=== PATIENT | male | born 1985 | race Caucasian/White ===

== ENCOUNTER → 2018-12-23 | Outpatient (CLI) | payer OTHER, SELFPAY ==
[2013-05-11 19:12] VITALS: BMI 26.9
[2018-12-23 13:44] LABS: Chlamydia Trachomatis by PCR Negative (Negative); Neisserai gonorrhoeae by PCR Negative (Negative); Probe Check PASS; Sample Adequacy Control PASS; Specimen Processing Control PASS
== END | disposition home or self-care (01) ==
LOC: LABSPEC 09:13
PROVIDERS: Visit Provider Nurse Practitioner Family
DX: Z11.3 Encounter for screening for infections with a predominantly sexual mode of transmission (principal)
CPT/HCPCS: 87491; 87591

== ENCOUNTER → 2019-04-08 17:03 | Outpatient (CLI) | payer OTHER, SELFPAY ==
[2013-05-11 19:12] VITALS: BMI 26.9
[2019-04-08 18:04] LABS: Hematocrit 47.8 % (40-54); Mean Corp Hgb Conc 33.5 g/dL (32-36); Mean Corpuscular Volume 89.5 fL (80-94); Mean Platelet Vol. 10.9 fl (6.2-12.0); Platelet Count 259 K/mm3 (150-450); RBC Distribution Width CV 12.8 % (11.6-14.6); RBC Distribution Width SD 41.8 fl (35.1-43.9); Red Blood Count 5.34 M/mm3 (4.6-6.2); White Blood Count 8.2 K/mm3 (4.4-11.0)
[2019-04-08 18:50] LABS: Vitamin B12 1207 pg/mL (211-911); Vitamin D,25 Hydroxy 21.9 ng/mL (29.95-100.01)
[2019-04-08 18:52] LABS: ALB/GLOB Ratio 1.1 RATIO (0.9-2.4); AST(SGOT) 22 U/L (15-37); Alanine Aminotransfer ALT/SGPT 37 U/L (16-61); Albumin, Serum 4.2 g/dL (3.2-5.0); Alkaline Phosphatase 89 U/L (45-117); Anion Gap 4 (5-15); BUN 11 mg/dL (7-18); BUN/Creat Ratio 9.5 RATIO (10-20); Calcium,Total 8.7 mg/dL (8.5-10.1); Chloride 105 mmol/L (98-107); Creatinine, Serum 1.16 mg/dL (0.70-1.30); EST Glomerular Filtration Rate 76 mL/min (>60); Est Glom Filt Rate - Afr Amer 92 mL/min (>60); Globulin 3.8 g/dL (2.2-4.2); Glucose 89 mg/dL (74-106); Potassium 4.1 mmol/L (3.5-5.1); Sodium Level 139 mmol/L (136-145); Thyroid Stim Hormone (TSH) 0.96 uIU/mL (0.358-3.74)
== END ==
PROVIDERS: Family Provider Family Medicine; PCP Family Medicine; Referring Provider Family Medicine; Visit Provider Family Medicine
DX: R53.83 Other fatigue (principal)
CPT/HCPCS: 36415; 80053; 82306; 82607; 84403; 84443; 85027

== ENCOUNTER 2023-03-31 14:38 | Observation (INO) | payer OTHER, BC, SELFPAY ==
[2023-03-31] VITALS (10 sets, daily range): BP systolic 121–160; BP diastolic 71–109; PULSE 67–104; RESP 14–18; TEMP 36.1–37.3; O2SAT 95–99; BMI 33.3; BMI 34.4
--- NOTE | 2023-03-31 14:53 | CT_ITS ---
We are attempting to reach an attending provider to discuss findings. An addendum with communication details will be sent when the communication is complete. STUDY: CT Abdomen And Pelvis W/ Contrast Injection 03/31/2023 4:43 PM REASON FOR EXAM: Male, 37 years old. ABDOMINAL PAIN RLQ pain TECHNIQUE: Transaxial images were obtained without oral contrast, and with IV 100mL Isovue-370 intravenous contrast. Individualized dose optimization techniques were used for this CT. COMPARISON: None FINDINGS: The visualized lung bases are unremarkable. The visualized portions of the heart are within normal limits. Unremarkable liver. Unremarkable gallbladder and extrahepatic biliary system. Unremarkable spleen. Unremarkable pancreas. Unremarkable bilateral adrenal glands. No acute findings of the right kidney. No acute findings of the left kidney. Unremarkable visualized stomach. Unremarkable small intestine. Unremarkable colon. There is a tubular, thick-walled appendix (>9 mm), consistent with acute appendicitis. Retrocecal appendix. There are no acute findings of the abdominal aorta. Unremarkable inferior vena cava. Subcentimeter mesenteric lymph nodes. Urinary bladder wall has wall thickening. This can be related to a partially contractile state. However, a cystitis is not excluded. Urinalysis should be performed in an effort to exclude cystitis. Unremarkable abdominal wall. Unremarkable osseous structures. CT/Abdomen/Pelvis W IV Cont ONLY IMPRESSION: (NOT LISTED IN ORDER OF SIGNIFICANCE) Urinary bladder wall has wall thickening. This can be related to a partially contractile state. However, a cystitis is not excluded. Urinalysis should be performed in an effort to exclude cystitis. Acute appendicitis without evidence for perforation or abscess formation. Other findings as above. Electronically Signed: Stanton Corona MD at 16:45 EST ,
[2023-03-31] MEDS: 0.9% Normal Saline (1000mL) 1,000 ML 1000 ML IV (15:08)
[2023-03-31] MEDS: Ondansetron 4 MG/2 ML Vial IV (15:08)
--- NOTE | 2023-03-31 15:08 | EX.ED.DYSGE1 ---
HPI <CLAIR Sweet - Last Filed: 03/31/23 18:04> History of Present Illness Chief Complaint: Abd Pain Narrative Narrative: Patient presenting today due to sharp right lower quadrant abdominal pain that he has had constantly since yesterday that is worsening. He reports that the pain radiates to his umbilicus. He has some nausea but denies vomiting. He denies any history of abdominal surgeries. Last bowel movement was yesterday morning and was normal. He denies fever, chills, diarrhea, urinary symptoms, and history of kidney stones. He denies a PMH of any chronic health conditions. PFSH <CLAIR Sweet - Last Filed: 03/31/23 18:04> PFSH Medical History (Updated 03/31/23 @ 17:[address] David Cordero MD) Depression Insomnia Meniscus, lateral, derangement Medical History no medical history Home Medications epinephrine 0.3 mg/0.3 mL injection, auto-injector (EpiPen 2-Yosef) 0.3 mg (0.3 mL) IM ONCE #2 ea 11/10/21 [Rx Last Taken Unknown] escitalopram oxalate 20 mg tablet 20 mg PO DAILY 03/31/23 [History Last Taken Unknown] trazodone 50 mg tablet 50 mg PO DAILY 03/31/23 [History Last Taken Unknown] Allergy/AdvReac Type Severity Reaction Status Date / Time No Known Allergies Allergy Verified 03/31/23 14:38 Social History Smoking Status: Never smoker ROS <CLAIR Sweet - Last Filed: 03/31/23 18:04> ROS ED Constitutional Constitutional ED: Denies chills or fever(s) Cardiovascular Cardiovascular: Denies chest pain Respiratory/Chest Respiratory/Chest: Denies cough or dyspnea Gastrointestinal Gastrointestinal: Reports abdominal pain and nausea; Denies diarrhea or vomiting Genitourinary Genitourinary ED: Denies dysuria, hematuria or urinary urgency Musculoskeletal Musculoskeletal: Denies arthralgias or myalgias Integumentary Denies rash Neurologic Neurologic: Denies weakness EXAM <CLAIR Sweet - Last Filed: 03/31/23 18:04> Physical Exam Const Vital Signs: 03/31/23 14:39 03/31/23 17:13 03/31/23 17:46 Temperature 96.9 F L 98.2 F Temperature Source Temporal Temporal Pulse Rate 104 H 80 74 Respiratory Rate 16 16 16 Blood Pressure 160/109 H 138/74 H 138/78 H Blood Pressure Mean 126 95 98 Blood Pressure Source Monitor Blood Pressure Position Semi-Fowlers Blood Pressure Location Right Arm Pulse Ox 95 99 99 Oxygen Delivery Method Room Air Room Air Positive well nourished, well developed and no apparent distress General Appearance ED: well developed HEENT Reports normocephalic and head/scalp atraumatic Mouth ED: Yes moist mucous membranes normal Eyes PERRL and EOMs intact bilaterally Neck full ROM and supple Chest Wall inspection of chest normal Resp normal respiratory effort and clear to auscultation bilaterally Cardio regular rate and regular rhythm GI soft to palpation, non-distended and no masses GI Narrative: McBurney's point tenderness to palpation without rigidity, guarding, or peritoneal signs. Negative Fan sign, positive Rovsing sign. Back/Spine normal ROM and normal to inspection Extremity normal to inspection and full ROM Neuro oriented x3, CN's II-XII intact bilaterally, moves all extremities, no focal motor deficits and no sensory deficits noted Sensorium / Orientation: awake and alert Psych mental status grossly normal and thought process normal Skin no rashes or lesions noted and no wounds <Dr. El Bentley MD - Last Filed: 03/31/23 22:00> Physical Exam Const Vital Signs: 03/31/23 14:39 03/31/23 17:13 03/31/23 17:46 Temperature 96.9 F L 98.2 F Temperature Source Temporal Temporal Pulse Rate 104 H 80 74 Respiratory Rate 16 16 16 Blood Pressure 160/109 H 138/74 H 138/78 H Blood Pressure Mean 126 95 98 Blood Pressure Source Monitor Blood Pressure Position Semi-Fowlers Blood Pressure Location Right Arm Pulse Ox 95 99 99 Oxygen Delivery Method Room Air Room Air [facility] <CLAIR Sweet - Last Filed: 03/31/23 18:04> [facility] Narrative Medical decision making narrative: Patient presenting today with right lower quadrant abdominal pain that started yesterday. He does have pain to McBurney's point. He is slightly tachycardic at 104 bpm. Labs to be obtained to rule out leukocytosis, anemia, electrolyte abnormality, CELIA, and UTI. CT of the abdomen and pelvis will be obtained to rule out appendicitis, kidney stone, bowel obstruction, diverticulitis, cholecystitis, and other etiology. He will be given IV fluids, Zofran, and morphine. CT of the abdomen does show appendicitis without perforation or abscess formation. Dr. Cordero was consulted and will be taking patient to the OR. Patient was started on Zosyn. Patient comfortable with this plan. Lab Data Attestation: I reviewed the patient's lab results. Lab results narrative: CBC, CMP, UA, lipase all WNL Labs: Laboratory Results - last 24 hr 03/31/23 03/31/23 03/31/23 15:10 15:40 17:10 WBC 9.0 RBC 5.26 Hgb 16.0 Hct 48.2 MCV 91.6 MCH 30.4 MCHC 33.2 RDW Std Deviation 44.2 H RDW Coeff of Mally 13.2 Plt Count 237 MPV 10.8 Immature Gran % (Auto) 0.300 Neut % (Auto) 73.8 H Lymph % (Auto) 17.5 L Orange % (Auto) 5.9 Eos % (Auto) 1.9 Baso % (Auto) 0.6 Absolute Neuts (auto) 6.6 Absolute Lymphs (auto) 1.57 Nucleated RBC % 0 PT 14.4 INR 1.1 Sodium 140 Potassium 3.8 Chloride 107 Carbon Dioxide 28.0 Anion Gap 5 BUN 11 Creatinine 1.21 Estim Creat Clear Calc 84.63 Est GFR (MDRD) Af Amer 86 Est GFR (MDRD) Non-Af 71 BUN/Creatinine Ratio 9.1 L Glucose 103 Calcium 9.1 Total Bilirubin 0.50 AST 19 ALT 54 Alkaline Phosphatase 112 Total Protein 7.5 Albumin 3.7 Globulin 3.8 Albumin/Globulin Ratio 1.0 Lipase 34 Urine Color Yellow Urine Clarity Clear Urine pH 6.0 Ur Specific Harold 1.015 Urine Protein Negative Urine Glucose (UA) Normal Urine Ketones 5 H Urine Occult Blood Negative Urine Nitrite Negative Urine Bilirubin Negative Urine Urobilinogen Normal Ur Leukocyte Esterase Negative Urine RBC 0 SEEN Urine WBC 0 SEEN Ur Squamous Epith Cells 0 SEEN Urine Bacteria 0 SEEN Urine Mucus 0 SEEN Blood Type A POSITIVE Antibody Screen NEGATIVE Radiography Diagnostic Testing: Clinical Impression(s) from Imaging Studies Abdomen/Pelvis CT 03/31/23 14:53 IMPRESSION: (NOT LISTED IN ORDER OF SIGNIFICANCE) Urinary bladder wall has wall thickening. This can be related to a partially contractile state. However, a cystitis is not excluded. Urinalysis should be performed in an effort to exclude cystitis. Acute appendicitis without evidence for perforation or abscess formation. Other findings as above. Electronically Signed: Stanton Corona MD at 16:45 EST , ADDENDUM: 03/31/23 1655 IMPRESSION: (NOT LISTED IN ORDER OF SIGNIFICANCE) Urinary bladder wall has wall thickening. This can be related to a partially contractile state. However, a cystitis is not excluded. Urinalysis should be performed in an effort to exclude cystitis. Acute appendicitis without evidence for perforation or abscess formation. Other findings as above. N.B. : The above Results were Read Back by Stanton Corona MD to El Bentley MD, and understanding confirmed on 03/31/2023 16:48:35 (ET). Electronically Signed: Stanton Corona MD at 16:45 EST , ADDENDUM: 03/31/23 1701 IMPRESSION: (NOT LISTED IN ORDER OF SIGNIFICANCE) Urinary bladder wall has wall thickening. This can be related to a partially contractile state. However, a cystitis is not excluded. Urinalysis should be performed in an effort to exclude cystitis. Acute appendicitis without evidence for perforation or abscess formation. Other findings as above. N.B. : The above Results were Read Back by Stanton Corona MD to El Bentley MD, and understanding confirmed on 03/31/2023 16:54:12 (ET). Electronically Signed: Stanton Corona MD at 16:45 EST , EKG Initial EKG: Comments: 75 bpm, normal sinus rhythm, no ST elevation, no signs of cardiac ischemia <Dr. El Bentley MD - Last Filed: 03/31/23 22:00> [facility] Lab Data Labs: Laboratory Results - last 24 hr 03/31/23 03/31/23 03/31/23 15:10 15:40 17:10 WBC 9.0 RBC 5.26 Hgb 16.0 Hct 48.2 MCV 91.6 MCH 30.4 MCHC 33.2 RDW Std Deviation 44.2 H RDW Coeff of Mally 13.2 Plt Count 237 MPV 10.8 Immature Gran % (Auto) 0.300 Neut % (Auto) 73.8 H Lymph % (Auto) 17.5 L Orange % (Auto) 5.9 Eos % (Auto) 1.9 Baso % (Auto) 0.6 Absolute Neuts (auto) 6.6 Absolute Lymphs (auto) 1.57 Nucleated RBC % 0 PT 14.4 INR 1.1 Sodium 140 Potassium 3.8 Chloride 107 Carbon Dioxide 28.0 Anion Gap 5 BUN 11 Creatinine 1.21 Estim Creat Clear Calc 84.63 Est GFR (MDRD) Af Amer 86 Est GFR (MDRD) Non-Af 71 BUN/Creatinine Ratio 9.1 L Glucose 103 Calcium 9.1 Total Bilirubin 0.50 AST 19 ALT 54 Alkaline Phosphatase 112 Total Protein 7.5 Albumin 3.7 Globulin 3.8 Albumin/Globulin Ratio 1.0 Lipase 34 Urine Color Yellow Urine Clarity Clear Urine pH 6.0 Ur Specific Harold 1.015 Urine Protein Negative Urine Glucose (UA) Normal Urine Ketones 5 H Urine Occult Blood Negative Urine Nitrite Negative Urine Bilirubin Negative Urine Urobilinogen Normal Ur Leukocyte Esterase Negative Urine RBC 0 SEEN Urine WBC 0 SEEN Ur Squamous Epith Cells 0 SEEN Urine Bacteria 0 SEEN Urine Mucus 0 SEEN Blood Type A POSITIVE Antibody Screen NEGATIVE Radiography Diagnostic Testing: Clinical Impression(s) from Imaging Studies Abdomen/Pelvis CT 03/31/23 14:53 IMPRESSION: (NOT LISTED IN ORDER OF SIGNIFICANCE) Urinary bladder wall has wall thickening. This can be related to a partially contractile state. However, a cystitis is not excluded. Urinalysis should be performed in an effort to exclude cystitis. Acute appendicitis without evidence for perforation or abscess formation. Other findings as above. Electronically Signed: Stanton Corona MD at 16:45 EST , ADDENDUM: 03/31/23 1655 IMPRESSION: (NOT LISTED IN ORDER OF SIGNIFICANCE) Urinary bladder wall has wall thickening. This can be related to a partially contractile state. However, a cystitis is not excluded. Urinalysis should be performed in an effort to exclude cystitis. Acute appendicitis without evidence for perforation or abscess formation. Other findings as above. N.B. : The above Results were Read Back by Stanton Corona MD to El Bentley MD, and understanding confirmed on 03/31/2023 16:48:35 (ET). Electronically Signed: Stanton Corona MD at 16:45 EST , ADDENDUM: 03/31/23 1701 IMPRESSION: (NOT LISTED IN ORDER OF SIGNIFICANCE) Urinary bladder wall has wall thickening. This can be related to a partially contractile state. However, a cystitis is not excluded. Urinalysis should be performed in an effort to exclude cystitis. Acute appendicitis without evidence for perforation or abscess formation. Other findings as above. N.B. : The above Results were Read Back by Stanton Corona MD to El Bentley MD, and understanding confirmed on 03/31/2023 16:54:12 (ET). Electronically Signed: Stanton Corona MD at 16:45 EST , Treatment and Re-Evaluation :: I have personally performed a face to face assessment of the patient and have reviewed the TAZ Note. I performed a substantive portion of the visit including all aspects of the following. My reid findings include: History: Patient states that yesterday morning he started with pain in his abdomen more around his umbilicus. It is moved to the right lower quadrant has gotten overall worse. He has had nausea but no vomiting. No change in bowel habits. No known fevers or chills. No history of abdominal surgery. No history of kidney stones and no urinary symptoms. Exam: Patient awake alert no acute distress. Lungs are clear. Heart is regular when I listen to them. Bowel sounds are normal. Not distended. But he does have tenderness to the right lower quadrant. He is not guarding. There is no rebound at this time. No CVA tenderness. Medical Decision Making: Patient will be given medications, IV fluids,, blood work and CT are pending. Discharge Plan Dx/Rx/DC Orders Clinical Impression: Acute appendicitis Disposition Disposition: Acute Care Hospital [facility] Discharge Date/Time: 03/31/23 18:01
[2023-03-31] MEDS: Morphine 4 MG/ML Syringe IV ×2 (15:09→17:09)
[2023-03-31 15:19] LABS: Absolute Lymphocyte Count 1.57 X10^3/uL (0.83-4.51); Absolute Neutrophil Count 6.6 X10^3/uL (2.0-7.7); Basophil# 0.05 X10^3/uL; Basophil% 0.6 % (0-1); Eosinophil# 0.17 X10^3/uL; Eosinophils% 1.9 % (0-5); Hematocrit 48.2 % (40-54); Lymphocyte # 1.57 X10^3/ul (0.83-4.51); Lymphocyte % 17.5 % (19-41); Mean Corp Hgb Conc 33.2 g/dL (32-36); Mean Corpuscular Hgb 30.4 pg (27.0-32.0); Mean Corpuscular Volume 91.6 fL (80-94); Mean Platelet Vol. 10.8 fl (6.2-12.0); Monocyte# 0.53 X10^3/uL; Monocyte% 5.9 % (0-10); NRBC Flagged by Analyzer 0 % (0-5); Neutrophil % 73.8 % (47-70); Platelet Count 237 K/mm3 (150-450); RBC Distribution Width CV 13.2 % (11.6-14.6); RBC Distribution Width SD 44.2 fl (35.1-43.9); Red Blood Count 5.26 M/mm3 (4.6-6.2)
[2023-03-31 15:32] LABS: AST(SGOT) 19 U/L (15-37); Alanine Aminotransfer ALT/SGPT 54 U/L (16-61); Albumin, Serum 3.7 g/dL (3.2-5.0); Alkaline Phosphatase 112 U/L (45-117); Anion Gap 5 (5-15); BUN 11 mg/dL (7-18); BUN/Creat Ratio 9.1 RATIO (10-20); Calcium,Total 9.1 mg/dL (8.5-10.1); Chloride 107 mmol/L (98-107); Creatinine, Serum 1.21 mg/dL (0.70-1.30); EST Glomerular Filtration Rate 71 mL/min (>60); Est Glom Filt Rate - Afr Amer 86 mL/min (>60); Estimated Creatinine Clearance 84.63 ml/min; Globulin 3.8 g/dL (2.2-4.2); Glucose 103 mg/dL (74-106); Lipase 34 U/L (13-75); Potassium 3.8 mmol/L (3.5-5.1); Protein, Total 7.5 g/dL (6.4-8.2); Sodium Level 140 mmol/L (136-145)
[2023-03-31 15:51] LABS: Bacteria 0 SEEN /hpf (None Seen); Mucous, Urine 0 SEEN /hpf (<or=2+); Red Blood Cells-Urine 0 SEEN /hpf (0-5); Squamous Epithelial Cells - UA 0 SEEN /hpf (0-5); White Blood Cells 0 SEEN /hpf (0-5)
[2023-03-31 15:59] LABS: Color, Urine Yellow (Yellow); Glucose, Dipstick Normal (Normal); Ketone-Dipstick 5 mg/dl (Negative); Leukocyte Esterase-Dipstick Negative /ul (Negative); Nitrite-Dipstick Negative (Negative); Occult Blood-Urine Negative /ul (Negative); Protein-Dipstick Negative (Negative); Specific Gravity, Urine 1.015 (1.002-1.030); Urine Bilirubin Dipstick Negative (Negative); Urine Clarity Clear (Clear); Urine Urobilinogen Normal (Normal)
--- OUTSIDE RECORDS SUMMARY | 2023-03-31 16:03 | XMS RPT_ITS | CCD ---
Author Name Unknown Address [address] [place] [id number] Organization [facility] Results Test Name Value Interpretation Reference Range Facil ity Summary Purpose Family History No Family History Records Found Advance Directives No Advanced Directives Records Found Additional Source Comments (unrecognized sect ion and content) No Status Records Found INFORMATION SOURCE (unrecogn ized section and content) FOR RECORDS PERTAINING TO PATIENTS WHO ARE OR HAVE BEEN ENROLLED IN A CHEMICAL DEPENDENCY/SUBSTANCEABUSE PROGRAM, SOME INFORMATION MAY BE OMITTED. This clinical summary was aggregated from multiple sources. Caution should be exercised in using it in the provision of clinical care. This summary normalizes information from multiple sources, and as a consequence, information in this document may materially change the coding, format and clinical context of patient data. In addition, data may be omitted in some cases. CLINICAL DECISIONS SHOULD BE BASED ON THE PRIMARY CLINICAL RECORDS. [employer] provides no warranty or guarantee of the accuracy or completeness of information in this document.
--- NOTE | 2023-03-31 16:54 | EKG12_ITS ---
Test Reason : PRE OP Blood Pressure : / mmHG Vent. Rate : 075 BPM Atrial Rate : 075 BPM P-R Int : 154 ms QRS Dur : 090 ms QT Int : 428 ms P-R-T Axes : 058 049 022 degrees QTc Int : 477 ms Normal sinus rhythm Septal infarct , age undetermined Abnormal ECG Confirmed by KESHIA FARNSWORTH, WENDY ([id number]), editor in chief JAIME COLVIN ([id number]) on 04/02/2023 8:35:28 AM Referred By: EBONY Confirmed By:WENDY SCHMITT MD
--- NOTE | 2023-03-31 16:58 | ED.RN ---
NO OLD EKG
[2023-03-31] MEDS: 0.9% Normal Saline (500mL Bag) 500 ML 999 ML IV (17:20)
[2023-03-31] MEDS: Piperacil/Tazobactam 3.375 GM in 0.9% Normal Saline (50mL MB+) 50 ML IV (17:36)
[2023-03-31 17:39] LABS: International Normalized Ratio 1.1; Prothrombin Time (Protime)PT. 14.4 SECONDS (11.7-14.9)
--- NOTE | 2023-03-31 17:48 | HP.PCM.SX_ITS ---
HPI - General HPI Narrative ANGEL RIVERA, is a 37 M who presents with right lower abdomen pain. The patient reports the pain started yesterday morning. It continued throughout the day and this morning it was worse than yesterday. He does have nausea but no vomiting. He denies fevers or chills. The pain does not radiate. [facility] Medical History (Updated 03/31/23 @ 17:[address] David Cordero MD) Depression Insomnia Meniscus, lateral, derangement Medical History no medical history Home Medications epinephrine 0.3 mg/0.3 mL injection, auto-injector (EpiPen 2-Yosef) 0.3 mg (0.3 mL) IM ONCE #2 ea 11/10/21 [Rx Last Taken Unknown] escitalopram oxalate 20 mg tablet 20 mg PO DAILY 03/31/23 [History Last Taken Unknown] trazodone 50 mg tablet 50 mg PO DAILY 03/31/23 [History Last Taken Unknown] Allergy/AdvReac Type Severity Reaction Status Date / Time No Known Allergies Allergy Verified 03/31/23 14:38 Social History Smoking Status: Never smoker ROS Constitutional Constitutional: Reports anorexia; Denies chills or fatigue Eyes Eyes: Denies blurry vision ENT HEENT: Denies abnormal hearing Cardiovascular Cardiovascular: Denies chest pain Respiratory/Chest Respiratory/Chest: Denies cough or dyspnea Gastrointestinal Gastrointestinal: Reports abdominal pain and nausea; Denies change in bowel torre bits or vomiting Genitourinary Genitourinary: Denies difficulty urinating Integumentary Integumentary: Denies jaundice or new lesions Neurologic Neurologic: Denies abnormal gait Psychiatric Psychiatric: Denies anxiety Endocrine Endocrinology: Denies heat intolerance Vital Signs Vital Signs Vital Signs: 03/31/23 14:39 03/31/23 17:13 03/31/23 17:46 Temperature 96.9 F L 98.2 F Temperature Source Temporal Temporal Pulse Rate 104 H 80 74 Respiratory Rate 16 16 16 Blood Pressure 160/109 H 138/74 H 138/78 H Blood Pressure Mean 126 95 98 Blood Pressure Source Monitor Blood Pressure Position Semi-Fowlers Blood Pressure Location Right Arm Pulse Ox 95 99 99 Oxygen Delivery Method Room Air Room Air Weight Weight: 231 lb 12.8 oz Body Mass Index (BMI) 33.3 Physical Exam Const oriented x3 and no apparent distress Resp normal respiratory effort Cardio regular rate and regular rhythm GI soft to palpation Palpation: tender RLQ Extremity normal to inspection Results Lab / Micro Data 03/31/23 15:10 03/31/23 15:10 Labs: Laboratory Results - last 24 hr 03/31/23 15:10: WBC 9.0, RBC 5.26, Hgb 16.0, Hct 48.2, MCV 91.6, MCH 30.4, MCHC 33.2, RDW Std Deviation 44.2 H, RDW Coeff of Mally 13.2, Plt Count 237, MPV 10.8, Immature Gran % (Auto) 0.300, Neut % (Auto) 73.8 H, Lymph % (Auto) 17.5 L, Mccreary % (Auto) 5.9, Eos % (Auto) 1.9, Baso % (Auto) 0.6, Absolute Neuts (auto) 6.6, Absolute Lymphs (auto) 1.57, Nucleated RBC % 0, Sodium 140, Potassium 3.8, Chloride 107, Carbon Dioxide 28.0, Anion Gap 5, BUN 11, Creatinine 1.21, Estim Creat Clear Calc 84.63, Est GFR (MDRD) Af Amer 86, Est GFR (MDRD) Non-Af 71, BUN/Creatinine Ratio 9.1 L, Glucose 103, Calcium 9.1, Total Bilirubin 0.50, AST 19, ALT 54, Alkaline Phosphatase 112, Total Protein 7.5, Albumin 3.7, Globulin 3.8, Albumin/Globulin Ratio 1.0, Lipase 34 03/31/23 15:40: Urine Color Yellow, Urine Clarity Clear, Urine pH 6.0, Ur Specific [place] 1.015, Urine Protein Negative, Urine Glucose (UA) Normal, Urine Ketones 5 H, Urine Occult Blood Negative, Urine Nitrite Negative, Urine Bilirubin Negative, Urine Urobilinogen Normal, Ur Leukocyte Esterase Negative, Urine RBC 0 SEEN, Urine WBC 0 SEEN, Ur Squamous Epith Cells 0 SEEN, Urine Bacteria 0 SEEN, Urine Mucus 0 SEEN 03/31/23 17:10: PT 14.4, INR 1.1 Imagaing Radiology Impression Abdomen/Pelvis CT 03/31/23 14:53 IMPRESSION: (NOT LISTED IN ORDER OF SIGNIFICANCE) Urinary bladder wall has wall thickening. This can be related to a partially contractile state. However, a cystitis is not excluded. Urinalysis should be performed in an effort to exclude cystitis. Acute appendicitis without evidence for perforation or abscess formation. Other findings as above. Electronically Signed: Stanton Corona MD at 16:45 EST , ADDENDUM: 03/31/23 1655 IMPRESSION: (NOT LISTED IN ORDER OF SIGNIFICANCE) Urinary bladder wall has wall thickening. This can be related to a partially contractile state. However, a cystitis is not excluded. Urinalysis should be performed in an effort to exclude cystitis. Acute appendicitis without evidence for perforation or abscess formation. Other findings as above. N.B. : The above Results were Read Back by Stanton Corona MD to El Bentley MD, and understanding confirmed on 03/31/2023 16:48:35 (ET). Electronically Signed: Stanton Corona MD at 16:45 EST , ADDENDUM: 03/31/23 1701 IMPRESSION: (NOT LISTED IN ORDER OF SIGNIFICANCE) Urinary bladder wall has wall thickening. This can be related to a partially contractile state. However, a cystitis is not excluded. Urinalysis should be performed in an effort to exclude cystitis. Acute appendicitis without evidence for perforation or abscess formation. Other findings as above. N.B. : The above Results were Read Back by Stanton Corona MD to El Bentley MD, and understanding confirmed on 03/31/2023 16:54:12 (ET). Electronically Signed: Stanton Corona MD at 16:45 EST , Assessment & Plan Assessment/Plan (1) Acute appendicitis: QUALIFIERS: Acute appendicitis type: unspecified acute appendicitis type Qualified Code(s): K35.80 - Unspecified acute appendicitis PLAN: The patient presented with right lower quadrant pain and a CT scan revealed a thick-walled inflamed appendix. I discussed this with the patient and recommended laparoscopic appendectomy. I discussed the procedure in detail including the risks of bleeding, infection, injury other organs such as the bowel, bladder or ureter. Patient understands the risks and is willing to proceed. He will be given antibiotics in the emergency room and admitted for the night after surgery. David Cordero MD Pager: [facility] [address] [place] [address] Office:
--- OUTSIDE RECORDS SUMMARY | 2023-03-31 17:56 | XMS RPT_ITS | CCD ---
Author Name Unknown Address [address] [place] [id number] Organization [facility] Results Test Name Value Interpretation [...] BE BASED ON THE PRIMARY CLINICAL RECORDS. [employer] provides no warranty or guarantee of the accuracy or completeness of information in this document.
[2023-03-31] MEDS: Bupiv/Epi 0.5% Mpf 30 ML Vial INFILT (18:43)
--- NOTE | 2023-03-31 18:59 | OP.PCM_ITS ---
Report of Operation Date of Procedure: 03/31/23 Pre-Operative Diagnosis: Acute appendicitis Post-Operative Diagnosis: Acute appendicitis Surgery/Procedure Performed:: Laparoscopic appendectomy Description of Surgical Findings:: Inflamed appendix Type of Anesthesia: General/Regional Specimen's removed: Appendix Estimated Blood Loss (mL): 5 Description of Procedure: The patient was brought into the operating room and general anesthesia was induced. The left arm was tucked and the abdomen was prepped and draped in usu al sterile fashion. A small midline incision was made superior to the umbilicus and deepened to the level of the fascia. The fascia was elevated and incised. The peritoneum was also elevated and incised. A finger sweep was performed and a balloon trocar was placed into the abdomen and inflated. The abdomen was insufflated to 15 mmHg and the camera was inserted and the abdomen was inspected for any injuries upon entering the abdomen. There were none. The patient was placed in Trendelenburg position and a 5 mm ports placed in the left lower quadrant and suprapubic areas under direct visualization. Next using atraumatic bowel graspers the appendix was identified. The appendix was grasped and elevated and Enseal was used to take down the mesoappendix. A stapler was used to come across the base of the appendix. The appendix was then placed in Endo Catch bag and removed through the umbilical incision. The staple line was inspected and found to be hemostatic and intact. The 2 5 mm ports are removed under direct visualization. The balloon trocar was deflated and removed and all the air was removed from the abdomen. The umbilical incision fascia was closed with an 0 Vicryl [id number] suture. The incisions were then irrigated with saline and dried. Local anesthetic was injected into the incision sites. The skin incisions were then closed with interrupted 4-0 Monocryl suture and Steri- Strips. Bandages were applied and the patient was awoken and taken to PACU in stable condition. Patient tolerated the procedure well. Admit VTE Documentation VTE Mechan Device Prophylaxis: SCD's
[2023-03-31] MEDS: 0.9% Normal Saline (1000mL) 1,000 ML 15 ML IV (19:13)
--- OUTSIDE RECORDS SUMMARY | 2023-03-31 19:29 | XMS RPT_ITS | CCD ---
Author Name Unknown Address [address] [place] [id number] Organization [facility] Results Test Name Value Interpretation [...] BE BASED ON THE PRIMARY CLINICAL RECORDS. [employer] provides no warranty or guarantee of the accuracy or completeness of information in this document.
[2023-03-31] MEDS: 0.9% Normal Saline (1000mL) 1,000 ML 100 ML IV (20:21)
[2023-03-31] MEDS: Ketorolac 15 MG/ML Vial IV (20:22)
[2023-03-31] MEDS: traZODone 50 MG Tablet PO (22:09)
[2023-03-31] MEDS: Escitalopram Oxalate 20 MG Tablet PO (22:09)
[2023-04-01 03:45] VITALS: BP 95/63; PULSE 76; RESP 16; TEMP 37; O2SAT 96
[2023-04-01] MEDS: 0.9% Normal Saline (1000mL) 1,000 ML 100 ML IV (04:18)
[2023-04-01] MEDS: Ketorolac 15 MG/ML Vial IV (04:18)
[2023-04-01 06:23] LABS: Absolute Lymphocyte Count 1.53 X10^3/uL (0.83-4.51); Absolute Neutrophil Count 4.8 X10^3/uL (2.0-7.7); Basophil# 0.02 X10^3/uL; Basophil% 0.3 % (0-1); Eosinophil# 0.13 X10^3/uL; Eosinophils% 1.9 % (0-5); Hematocrit 41.7 % (40-54); Hemoglobin 14.1 g/dL (13.0-16.5); Lymphocyte # 1.53 X10^3/ul (0.83-4.51); Mean Corp Hgb Conc 33.8 g/dL (32-36); Mean Corpuscular Hgb 31.1 pg (27.0-32.0); Mean Corpuscular Volume 91.9 fL (80-94); Mean Platelet Vol. 11.1 fl (6.2-12.0); Monocyte# 0.43 X10^3/uL; Monocyte% 6.2 % (0-10); NRBC Flagged by Analyzer 0 % (0-5); Neutrophil # 4.81 X10^3/uL (2.7-7.7); Neutrophil % 69.3 % (47-70); Platelet Count 213 K/mm3 (150-450); RBC Distribution Width CV 13.5 % (11.6-14.6); RBC Distribution Width SD 45.9 fl (35.1-43.9); Red Blood Count 4.54 M/mm3 (4.6-6.2); White Blood Count 6.9 K/mm3 (4.4-11.0)
[2023-04-01 06:46] LABS: Anion Gap 2 (5-15); BUN 10 mg/dL (7-18); BUN/Creat Ratio 8.9 RATIO (10-20); Calcium,Total 8.3 mg/dL (8.5-10.1); Chloride 112 mmol/L (98-107); Creatinine, Serum 1.12 mg/dL (0.70-1.30); EST Glomerular Filtration Rate 77 mL/min (>60); Est Glom Filt Rate - Afr Amer 94 mL/min (>60); Estimated Creatinine Clearance 91.43 ml/min; Glucose 94 mg/dL (74-106); Potassium 4.3 mmol/L (3.5-5.1); Sodium Level 141 mmol/L (136-145)
[2023-04-01 07:45] VITALS: BP 140/77; PULSE 71; RESP 16; TEMP 36.6; O2SAT 96
--- NOTE | 2023-04-01 08:25 | PCM.PN.SRG ---
Subjective Subjective Patient is doing well with no issues Objective Data Objective Data Vital Signs: Vital Signs Temp Pulse Resp BP Pulse Ox O2 Del Method 97.9 F 71 16 140/77 H 96 Room Air 04/01/23 07:45 04/01/23 07:45 04/01/23 07:45 04/01/23 07:45 04/01/23 07:45 04/01/23 07:45 Oxygen Delivery Method Room Air Weight: 240 lb 1 oz Body Mass Index (BMI) 34.4 Intake & Output: Intake and Output for Last 24 Hours 03/30/23 03/31/23 04/01/23 23:59 23:59 23:59 Intake Total 1587 / 1787 1295 / 1295 Output Total 1050 / 1050 Balance 1587 / 1437 245 / 245 Lab / Micro Data 04/01/23 05:47 04/01/23 05:47 Labs: Laboratory Results - last 24 hr 03/31/23 15:10: WBC 9.0, RBC 5.26, Hgb 16.0, Hct 48.2, MCV 91.6, MCH 30.4, MCHC 33.2, RDW Std Deviation 44.2 H, RDW Coeff of Mally 13.2, Plt Count 237, MPV 10.8, Immature Gran % (Auto) 0.300, Neut % (Auto) 73.8 H, Lymph % (Auto) 17.5 L, [place] % (Auto) 5.9, Eos % (Auto) 1.9, Baso % (Auto) 0.6, Absolute Neuts (auto) 6.6, Absolute Lymphs (auto) 1.57, Nucleated RBC % 0, Sodium 140, Potassium 3.8, Chloride 107, Carbon Dioxide 28.0, Anion Gap 5, BUN 11, Creatinine 1.21, Estim Creat Clear Calc 84.63, Est GFR (MDRD) Af Amer 86, Est GFR (MDRD) Non-Af 71, BUN/Creatinine Ratio 9.1 L, Glucose 103, Calcium 9.1, Total Bilirubin 0.50, AST 19, ALT 54, Alkaline Phosphatase 112, Total Protein 7.5, Albumin 3.7, Globulin 3.8, Albumin/Globulin Ratio 1.0, Lipase 34 03/31/23 15:40: Urine Color Yellow, Urine Clarity Clear, Urine pH 6.0, Ur Specific [place] 1.015, Urine Protein Negative, Urine Glucose (UA) Normal, Urine Ketones 5 H, Urine Occult Blood Negative, Urine Nitrite Negative, Urine Bilirubin Negative, Urine Urobilinogen Normal, Ur Leukocyte Esterase Negative, Urine RBC 0 SEEN, Urine WBC 0 SEEN, Ur Squamous Epith Cells 0 SEEN, Urine Bacteria 0 SEEN, Urine Mucus 0 SEEN 03/31/23 17:10: PT 14.4, INR 1.1, Blood Type A POSITIVE, Antibody Screen NEGATIVE 04/01/23 05:47: WBC 6.9, RBC 4.54 L, Hgb 14.1, Hct 41.7, MCV 91.9, MCH 31.1, MCHC 33.8, RDW Std Deviation 45.9 H, RDW Coeff of Mally 13.5, Plt Count 213, MPV 11.1, Immature Gran % (Auto) 0.300, Neut % (Auto) 69.3, Lymph % (Auto) 22.0, [place] % (Auto) 6.2, Eos % (Auto) 1.9, Baso % (Auto) 0.3, Absolute Neuts (auto) 4.8, Absolute Lymphs (auto) 1.53, Nucleated RBC % 0, Sodium 141, Potassium 4.3, Chloride 112 H, Carbon Dioxide 27.0, Anion Gap 2 L, BUN 10, Creatinine 1.12, Estim Creat Clear Calc 91.43, Est GFR (MDRD) Af Amer 94, Est GFR (MDRD) Non-Af 77, BUN/Creatinine Ratio 8.9 L, Glucose 94, Calcium 8.3 L Radiography Diagnostic Testing: Radiology Impression Abdomen/Pelvis CT 03/31/23 14:53 IMPRESSION: (NOT LISTED IN ORDER OF SIGNIFICANCE) Urinary bladder wall has wall thickening. This can be related to a partially contractile state. However, a cystitis is not excluded. Urinalysis should be performed in an effort to exclude cystitis. Acute appendicitis without evidence for perforation or abscess formation. Other findings as above. Electronically Signed: Stanton Corona MD at 16:45 EST Reading Location ID and State: [facility] / [place] , Service support , ADDENDUM: 03/31/23 7000 IMPRESSION: (NOT LISTED IN ORDER OF SIGNIFICANCE) Urinary bladder wall has wall thickening. This can be related to a partially contractile state. However, a cystitis is not excluded. Urinalysis should be performed in an effort to exclude cystitis. Acute appendicitis without evidence for perforation or abscess formation. Other findings as above. N.B. : The above Results were Read Back by Stanton Corona MD to El Bentley MD, and understanding confirmed on 03/31/2023 16:48:35 (ET). Electronically Signed: Stanton Corona MD at 16:45 EST , ADDENDUM: 03/31/23 1701 IMPRESSION: (NOT LISTED IN ORDER OF SIGNIFICANCE) Urinary bladder wall has wall thickening. This can be related to a partially contractile state. However, a cystitis is not excluded. Urinalysis should be performed in an effort to exclude cystitis. Acute appendicitis without evidence for perforation or abscess formation. Other findings as above. N.B. : The above Results were Read Back by Stanton Corona MD to El Bentley MD, and understanding confirmed on 03/31/2023 16:54:12 (ET). Electronically Signed: Stanton Corona MD at 16:45 EST , Physical Exam Const oriented x3 and no apparent distress Resp normal respiratory effort and clear to auscultation bilaterally GI soft to palpation and non-tender Assessment & Plan Assessment/Plan (1) Acute appendicitis: QUALIFIERS: Acute appendicitis type: unspecified acute appendicitis type Qualified Code(s): K35.80 - Unspecified acute appendicitis PLAN: Patient is doing well after laparoscopic appendectomy. He is tolerating a diet and he will be discharged home.
--- NOTE | 2023-04-01 08:26 | DCINST_ITS ---
Discharge Instructions Procedure Appendectomy Diet Discharge Diet: Light diet - advance as tolerated Activity Discharge Activity: May Not Drive (for 2-3 days or while taking narcotic pain medications.) May shower in (days): 1 Lifting Restrictions: 20 lbs for 2 weeks Dressing / Incision Call your doctor if your incision/area has: Continuous Slow Oozing, Sudden Increased Bleeding, Increased Pain/ Swelling, Increased Redness and Foul Smelling Discharge Call your doctor if you observe: Fever of 101 or Higher Suture Line Care: Avoid Pulling/Pushing and Avoid Pinching/Bending Remove Dressing in: 2 days (Remove clear bandage in 2 days, remove Steri-Strips in 7 to 10 days) Cleanse incision/area with: Soap & Water Additional Dressing/Incision Instructions:: Keep dressing clean and dry. Change or remove dressing in 2 days. Leave steri strips for 1 week. May protect with a gauze bandaid. Follow Up Care Please Follow Up With: David Cordero MD When: Please call to schedule 2 week follow up appointment. [phone] Test Results: Test results from this visit will be discussed in further detail at your follow- up appointment, if applicable. Discharge Plan Admission Admit Date/Time: 03/31/23 18:59 Attending Provider: David Cordero Primary Care Provider: Prasanna Horne Instructions Additional Instructions / Restrictions: Alternate ibuprofen and Tylenol for pain, oxycodone for breakthrough. Okay to return to work light duty when you feel up to it. Discharge Orders/Prescriptions Prescriptions: New acetaminophen 325 mg Tablet 650 mg PO Q4H PRN PRN (Reason: Pain 1-10 Or Fever) Qty: 0 0RF oxycodone 5 mg Tablet 5 - 10 mg PO Q4H PRN PRN (Reason: Pain Score 4-10) 5 Days Qty: 20 0RF Continued epinephrine [EpiPen 2-Yosef] 0.3 mg/0.3 mL auto-injector 0.3 mg IM ONCE Qty: 2 0RF Rx Instructions: as a single dose; may repeat once escitalopram oxalate 20 mg tablet 20 mg PO DAILY Patient Comments: TAKE 1 TABLET BY MOUTH EVERY DAY trazodone 50 mg tablet 50 mg PO DAILY Patient Comments: TAKE 1 TABLET BY MOUTH AT BEDTIME Referrals / Follow Up: Prasanna Horne MD [Primary Care Provider] - Disposition Disposition (needs filled in before D/C Order can be placed): Home, Self Care
[2023-04-01 11:00] VITALS: BP 149/93; PULSE 70; RESP 16; TEMP 37.2; O2SAT 95
--- NOTE | 2023-04-02 | APP_PTH ---
PATHOLOGY RESULTS PATIENT: ANGEL RIVERA LOC: [facility] U#:[id number] AGE/SX: 37/M ROOM: ME315 RE03/31/[address]: Dr. David Cordero MD : 1985 BED: 1 DIS: 04/01/2023 SPEC #: [id number] RECD: 04/02/23 11:40 STATUS: DARRIUS WOODRUFF #: [id number] BAO: 04/02/23 00:[address]: David Cordero DEPT: SURGICAL PATHOLOGY RECD BY: Fariha Roth ENTERED: 04/02/23 11:41 SP TYPE: APPENDIX OTHR DR: Dr. Zachary Horne MD Tissues: Appendix, NOS Procedures: Surgery Specimen Level III HEADER OPERATION: Laparoscopic appendectomy PRE-OP DIAGNOSIS: Acute appendicitis TISSUE SUBMITTED: Appendix MICROSCOPIC DIAGNOSIS Appendix, appendectomy: Acute appendicitis and periappendicitis. 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 SJ:ruslan 04/03/2023 COMMENT Case has been reviewed in consultation with Dr. Stallings who concurs with the above diagnosis. IDC:AM MICROSCOPIC DESCRIPTION Slides are reviewed. GROSS DESCRIPTION Received in fixative is one container labeled with the patient's name and designated appendix. The specimen consists of an appendix measuring 5.0 cm in length and up to 1.0 cm in diameter. The attached periappendiceal adipose tissue measures up to 2.0 cm in width. The serosa is covered focally with mcelroy, purulent exudate. A diverticulum with possible rupture is noted 1.0 cm away from the tip of the appendix. The lumen is pinpoint. No fecalith is identified. Thermodynamics Teacher sections are submitted in three cassettes. The tip with area of possible ruptured diverticulum is present in cassette 1 & 2 and is entirely submitted. / CATHERNIE:ruslan 04/02/2023 TC:2 CPT: 85846
== END 2023-04-01 11:07 | disposition home or self-care (01) ==
LOC: ED 17:34 → SDC 17:54 → MS3 19:25
PROVIDERS: Physician Assistant; Admitting Provider Surgery; Emergency Provider Emergency Medicine; PCP Family Medicine; Visit Provider Surgery
PROC: 0DTJ4ZZ Resection of Appendix, Percutaneous Endoscopic Approach (ICD-10-PCS; CPT 44970; principal; 2023-03-31 18:00)
DX: K35.80 Unspecified acute appendicitis (principal); F32.A Depression, unspecified; Z79.899 Other long term (current) drug therapy
CPT/HCPCS: 44970; 00840; 36415; 74177; 80048; 80053; 81001; 83690; 85025; 85610; 86850; 86900; 86901; 88304; 93005; 94668; 96361; 96374; 96375; 96376; 99221; 99252; 99284; J7030; Q9967; A4216; C1760; G0378; G0463; J2405

== ENCOUNTER → 2023-12-03 | Outpatient (CLI) | payer OTHER, SELFPAY ==
[2023-12-03 18:41] LABS: Anion Gap 8 (5-15); BUN 15 mg/dL (7-18); BUN/Creat Ratio 13.8 RATIO (10-20); Calcium,Total 9.3 mg/dL (8.5-10.1); Chloride 106 mmol/L (98-107); Cholesterol 203 mg/dL (200); Creatinine, Serum 1.09 mg/dL (0.70-1.30); EST Glomerular Filtration Rate 80 mL/min (>60); Est Glom Filt Rate - Afr Amer 96 mL/min (>60); Glucose 114 mg/dL (74-106); High Density Lipoprotein 43 mg/dL; Sodium Level 137 mmol/L (136-145); Triglycerides 193 mg/dL; Very Low Density Lipoprotein 39 mg/dL (5-40)
== END | disposition home or self-care (01) ==
PROVIDERS: PCP Family Medicine; Visit Provider Family Medicine
DX: Z13.220 Encounter for screening for lipoid disorders (principal); Z13.1 Encounter for screening for diabetes mellitus; E55.9 Vitamin D deficiency, unspecified
CPT/HCPCS: 36415; 80048; 80061; 82306

== ENCOUNTER → 2024-12-22 | Outpatient (CLI) | payer OTHER, SELFPAY | END | disposition home or self-care (01) | LOC: MFPLAB 10:02 | PROVIDERS: PCP Family Medicine; Visit Provider Family Medicine | DX: R53.83 Other fatigue (principal) | CPT/HCPCS: 36415; 84403 ==

== ENCOUNTER → 2025-01-25 | Outpatient (CLI) | payer OTHER, SELFPAY ==
[2025-01-25 15:57] LABS: Follicle Stimulating Hormone 2.7 mIU/mL; Vitamin D,25 Hydroxy 36.3 ng/mL (30-100)
--- OUTSIDE RECORDS SUMMARY | 2025-01-25 17:22 | XMS RPT_ITS | CCD ---
Author Organization [facility] Care Team Providers Care Rn Medical Inpatient Services Name Role Phone Dr. Prasanna Horne Primary Care Provider Dr. El Bentley Emergency Provider Dr. David Cordero Attending Provider Dr. David Cordero Admit Provider Dr. David Cordero Other Provider Dr. Zachary Horne MD Primary Care Physicia n Dr. Zachary Horne MD Attending Physician Zachary Horne Attending Unavailable Zachary Horne Primary Care Unavailable Medications Current Medications Medication Drug Class(es) Dates Sig (Normalized) Sig (Original) acetaminophen 325 mg oral tablet (2 sources) Start: 04-01-2023 take 1-10 tablets by mouth every four hours as needed for pain Start: 04-01-2023 take 650 mg by mouth every four hours as needed Acetaminophen Active 650 MG PO EVERY 4 HOURS NEEDED 0 April 01, 2023 12:00am [id number] 0.3 ml EPINEPHrine 1 mg/ml auto-injector (3 sources) alpha-Adrenergic Agonist, beta-Adrenergic Agonist, Catecholamine Start: 11-10-2021 escitalopram 20 mg oral tablet (3 sources) Serotonin Reuptake Inhibitor Start: 03-31-2023 take 1 tablet by mouth once daily oxyCODONE hydrochloride 5 mg oral tablet (2 sources) Opioid Agonist Start: 04-01-2023 take 5-10 mg by mouth every four hours as needed for pain traZODone hydrochloride 50 mg oral tablet (3 sources) Serotonin Reuptake Inhibitor Start: 03-31-2023 take 1 tablet by mouth once daily Completed/Discontinued Medications Medication Drug Class(es) Dates Sig (Normalized) Sig (Original) amoxicillin 500 mg oral capsule (3 sources) Penicillin-class Antibacterial Start: 05-11-2013 End: 11-10-2021 take 1 capsule by mouth every eight hours Amoxicillin 500 MG capsule Discontinued 500 mg PO Q8H 30 May 11, 2013 1:00am November 10, 2021 5:02pm predniSONE 10 mg oral tablet (3 sources) Start: 11-10-2021 End: 03-31-2023 Prednisone 10 mg tablet Discontinued 0 PO DAILY 30 November 10, 2021 12:00am March 31, 2023 5:57pm 40mg (4 tabs), 30 mg (3 tabs) x 3 days, 20 mg (2 tabs)x 2 days, 10 mg x 3 days orally daily; Start: 11-10-2021 End: 03-31-2023 Prednisone Discontinued 0 PO DAILY November 09, 2021 11:00pm March 31, 2023 4:57pm 40mg (4 tabs), 30 mg (3 tabs) x 3 days, 20 mg (2 tabs)x 2 days, 10 mg x 3 days orally daily; Problems Problem Classification Problem Date Documented Da te Episodic/Chronic Appendicitis and other appendiceal conditions (5 sources) Acute appendicitis; Translations: [Unspecified acute appendicitis] 03-31-2023 Episodic Malaise and fatigue (1 source) Other fatigue; Translations: [Other fatigue] Onset: 12-29-2024 Episodic Other eye disorders (2 sources) Swelling of structure of eye; Translations: [Other specified disorders of eye and adnexa] 11-10-2021 Episodic Other eye disorders (1 source) Swelling around eyes; Translations: [Other specified disorders of eye and adnexa] 11-10-2021 Episodic Poisoning by nonmedicinal substances (3 sources) Allergic reaction to bee sting; Translations: [Toxic effect of venom of bees, accidental (unintentional), initial encounter] 11-10-2021 Episodic Results Test Name Value Interpretation Reference Range Facility L509.3001on 12-22-2024 Testosterone [Mass/Vol] 281.00 ng/dL Low 300-890 [facility] Comment on above: Performed By: #### L 509.3001 #### [facility] [place] [place], [id number] Laboratory - Chemistry and C hemistry - challengeOrdered By: Zachary Horne on 12-22-2024 Testosterone [Mass/Vol] 281.00 ng/dL Low 300-890 [facility] Absolute lymphocyte countOrd ered By: David Cordero on 04-01-2023 Lymphocytes Auto (Unsp spec) [#/Vol] 1.53 10*3/uL 0.83-4.51 [facility] Basophil percentageOrdered B y: David Cordero on 04-01-2023 Basophils/100 WBC (Bld) 0.3 % 0-1 [facility] Chloride [Moles/Vol] 112 mmol/L 98-107 [facility] Eosinophils/100 WBC (Bld) 1.9 % 0-5 [facility] Glucose [Mass/Vol] 94 mg/dL 74-106 [facility] Neutrophils (Bld) [#/Vol] 4.8 10*3/uL 2.0-7.7 [facility] Neutrophils/100 WBC (Bld) 69.3 % 47-70 [facility] Potassium [Moles/Vol] 4.3 mmol/L 3.5-5.1 [facility] Sodium [Moles/Vol] 141 mmol/L 136-145 [facility] WBC (Bld) [#/Vol] 6.9 10*3/uL 4.4-11.0 [facility] Blood erythrocytes count (nu mber/volume)Ordered By: David Cordero on 04-01-2023 RBC (Bld) [#/Vol] 4.54 10*6/uL 4.6-6.2 [facility] Blood hemoglobin measurement (mass/volume)Ordered By: David Cordero on 04-01-2023 Hemoglobin (Bld) [Mass/Vol] 14.1 g/dL 13.0-16.5 [facility] Blood lymphocytes/100 leukoc ytesOrdered By: David Cordero on 04-01-2023 Lymphocytes/100 WBC (Bld) 22.0 % 19-41 [facility] Blood monocytes/100 leukocyt esOrdered By: David Cordero on 04-01-2023 Monocytes/100 WBC (Bld) 6.2 % 0-10 [facility] Blood platelet mean volumeOr dered By: David Cordero on 04-01-2023 Platelet mean volume (Bld) [Entitic vol] 11.1 fL 6.2-12.0 [facility] Determination of erythrocyte mean corpuscular volume (MCV)Ordered By: David Cordero on 04-01-2023 MCV (RBC) [Entitic vol] 91.9 fL 80-94 [facility] Hematocrit Auto (Bld) [Volum e fraction]Ordered By: David Cordero on 04-01-2023 Hematocrit (Bld) [Volume fraction] 41.7 % 40-54 [facility] Laboratory - Chemistry and C hemistry - challengeOrdered By: David Cordero on 04-01-2023 CO2 [Moles/Vol] 27.0 mmol/L 21.0-32.0 [facility] Urea nitrogen/Creatinine [Mass ratio] 8.9 mg/mg 10-20 [facility] Laboratory - Hematology and Cell countsOrdered By: David Cordero on 04-01-2023 Erythrocyte distribution width (RBC) [Entitic vol] 45.9 fL 35.1-43.9 [facility] Erythrocyte distribution width (RBC) [Ratio] 13.5 % 11.6-14.6 [facility] Immature granulocytes/100 WBC (Bld) 0.300 % 0.0-0.9 [facility] Comment on above: IG% - Immature Granu locytes (promyelocytes, myelocytes and metamyelocytes) > 1% indicates that a LEFT SHIFT is Present. MCH (RBC) [Entitic mass] 31.1 pg 27.0-32.0 [facility] Nucleated RBC/100 WBC (Bld) [Ratio] 0 % 0-5 [facility] MCHC Auto (RBC) [Mass/Vol]Or dered By: David Cordero on 04-01-2023 MCHC (RBC) [Mass/Vol] 33.8 g/dL 32-36 [facility] No Panel InformationOrdered By: David Cordero on 04-01-2023 Estimated Creatinine Clearance Calc 91.43 ml/min [facility] Estimated GFR (MDRD) Amer 94 mL/min >60 [facility] Comment on above: GFR Calc Estimated GFR (MDRD) Non-Af Amer 77 mL/min >60 [facility] Comment on above: Non- GFR Calc Platelets bldOrdered By: Bobby Cordero on 04-01-2023 Platelets (Bld) [#/Vol] 213 10*3/uL 150-450 [facility] Serum or plasma calcium amos urement (mass/volume)Ordered By: David Cordero on 04-01-2023 Calcium [Mass/Vol] 8.3 mg/dL 8.5-10.1 [facility] Serum or plasma creatinine m easurement (mass/volume)Ordered By: David Cordero on 04-01-2023 Creatinine [Mass/Vol] 1.12 mg/dL 0.70-1.30 [facility] Comment on above: The validity of the calculated GFR & GFRAA in patients over 70 years has not been determined. Clinical correlation is essential. Serum or plasma urea nitroge n measurement (mass/volume)Ordered By: David Cordero on 04-01-2023 Urea nitrogen [Mass/Vol] 10 mg/dL 7-18 [facility] Thin prep Papanicolaou smear with manual screeningOrdered By: David Cordero on 04-01-2023 Thin prep Papanicolaou smear with manual screening 2 5-15 [facility] Absolute lymphocyte countOrd ered By: Lesly Champion on 03-31-2023 Lymphocytes Auto (Unsp spec) [#/Vol] 1.57 10*3/uL 0.83-4.51 [facility] Basophil percentageOrdered B y: Lesly Champion on 03-31-2023 Basophil percentage 0 SEEN /hpf 0-5 [facility] Basophils/100 WBC (Bld) 0.6 % 0-1 [facility] Bilirubin [Mass/Vol] 0.50 mg/dL 0.20-1.00 [facility] Comment on above: For patients on eltr ombopag therapy, use of Dimension [place] TBIL is not recommended. Chloride [Moles/Vol] 107 mmol/L 98-107 [facility] Eosinophils/100 WBC (Bld) 1.9 % 0-5 [facility] Glucose [Mass/Vol] 103 mg/dL 74-106 [facility] Comment on above: Fasting Glucose resu lt from 100 to 125 mg/dL suggests IMPAIRED HOMEOSTASIS per A.D.A. criteria. Neutrophils (Bld) [#/Vol] 6.6 10*3/uL 2.0-7.7 [facility] Neutrophils/100 WBC (Bld) 73.8 % 47-70 [facility] Potassium [Moles/Vol] 3.8 mmol/L 3.5-5.1 [facility] Protein [Mass/Vol] 7.5 g/dL 6.4-8.2 [facility] Sodium [Moles/Vol] 140 mmol/L 136-145 [facility] WBC (Bld) [#/Vol] 9.0 10*3/uL 4.4-11.0 [facility] Bilirubin Test strip Ql (U)O rdered By: Lesly Champion on 03-31-2023 Bilirubin Ql (U) Negative Negative [facility] Blood erythrocytes count (nu mber/volume)Ordered By: Lesly Champion on 03-31-2023 RBC (Bld) [#/Vol] 5.26 10*6/uL 4.6-6.2 [facility] Blood hemoglobin measurement (mass/volume)Ordered By: Lesly Champion on 03-31-2023 Hemoglobin (Bld) [Mass/Vol] 16.0 g/dL 13.0-16.5 [facility] Blood lymphocytes/100 leukoc ytesOrdered By: Lesly Champion on 03-31-2023 Lymphocytes/100 WBC (Bld) 17.5 % 19-41 [facility] Blood monocytes/100 leukocyt esOrdered By: Lesly Champion on 03-31-2023 Monocytes/100 WBC (Bld) 5.9 % 0-10 [facility] Blood platelet mean volumeOr dered By: Lesly Champion on 03-31-2023 Platelet mean volume (Bld) [Entitic vol] 10.8 fL 6.2-12.0 [facility] Determination of erythrocyte mean corpuscular volume (MCV)Ordered By: Lesly Champion on 03-31-2023 MCV (RBC) [Entitic vol] 91.6 fL 80-94 [facility] Hematocrit Auto (Bld) [Volum e fraction]Ordered By: Lesly Champion on 03-31-2023 Hematocrit (Bld) [Volume fraction] 48.2 % 40-54 [facility] INR in Blood by Coagulation assayOrdered By: Lesly Champion on 03-31-2023 INR Coag (Bld) [Relative time] 1.1 {INR} [facility] Ketones Test strip Ql (U)Ord ered By: Lesly Champion on 03-31-2023 Ketones Ql (U) 5 mg/dl Negative [facility] Laboratory - Chemistry and C hemistry - challengeOrdered By: Lesly Champion on 03-31-2023 ALP [Catalytic activity/Vol] 112 U/L 45-117 [facility] ALT [Catalytic activity/Vol] 54 U/L 16-61 [facility] CO2 [Moles/Vol] 28.0 mmol/L 21.0-32.0 [facility] Globulin (S) [Mass/Vol] 3.8 g/dL 2.2-4.2 [facility] Lipase [Catalytic activity/Vol] 34 U/L 13-75 [facility] Comment on above: Please note:LIPASE r evised reference range effective 22. New Lipase methodology. Expected to produce lower values than the previous assay method. NEW Reference Range: 13 - 75 U/L Urea nitrogen/Creatinine [Mass ratio] 9.1 mg/mg 10-20 [facility] Laboratory - CoagulationOrde red By: Lesly Champion on 03-31-2023 PT Coag (PPP) [Time] 14.4 s 11.7-14.9 [facility] Laboratory - Hematology and Cell countsOrdered By: Lesly Champion on 03-31-2023 Erythrocyte distribution width (RBC) [Entitic vol] 44.2 fL 35.1-43.9 [facility] Erythrocyte distribution width (RBC) [Ratio] 13.2 % 11.6-14.6 [facility] Immature granulocytes/100 WBC (Bld) 0.300 % 0.0-0.9 [facility] Comment on above: IG% - Immature Granu locytes (promyelocytes, myelocytes and metamyelocytes) > 1% indicates that a LEFT SHIFT is Present. MCH (RBC) [Entitic mass] 30.4 pg 27.0-32.0 [facility] Nucleated RBC/100 WBC (Bld) [Ratio] 0 % 0-5 [facility] MCHC Auto (RBC) [Mass/Vol]Or dered By: Lesly Champion on 03-31-2023 MCHC (RBC) [Mass/Vol] 33.2 g/dL 32-36 [facility] Mucus LM Ql (Urine sed)Order ed By: Lesly Champion on 03-31-2023 Mucus Ql (Urine sed) 0 SEEN /hpf [facility] Nitrite Test strip Ql (U)Ord ered By: Lesly Champion on 03-31-2023 Nitrite Ql (U) Negative Negative [facility] No Panel InformationOrdered By: Lesly Champion on 03-31-2023 Estimated Creatinine Clearance Calc 84.63 ml/min [facility] Estimated GFR (MDRD) Amer 86 mL/min >60 [facility] Comment on above: GFR Calc Estimated GFR (MDRD) Non-Af Amer 71 mL/min >60 [facility] Comment on above: Non- GFR Calc Platelets bldOrdered By: Rip Champion on 03-31-2023 Platelets (Bld) [#/Vol] 237 10*3/uL 150-450 [facility] Protein Test strip Ql (U)Ord ered By: Lesly Champion on 03-31-2023 Protein Ql (U) Negative Negative [facility] Serum or plasma albumin amos urement (mass/volume)Ordered By: Lesly Champion on 03-31-2023 Albumin [Mass/Vol] 3.7 g/dL 3.2-5.0 [facility] Serum or plasma albumin/glob ulin mass ratioOrdered By: Lesly Champion on 03-31-2023 Albumin/Globulin [Mass ratio] 1.0 {ratio} 0.9-2.4 [facility] Serum or plasma calcium amos urement (mass/volume)Ordered By: Lesly Champion on 03-31-2023 Calcium [Mass/Vol] 9.1 mg/dL 8.5-10.1 [facility] Serum or plasma creatinine m easurement (mass/volume)Ordered By: Lesly Champion on 03-31-2023 Creatinine [Mass/Vol] 1.21 mg/dL 0.70-1.30 [facility] Comment on above: The validity of the calculated GFR & GFRAA in patients over 70 years has not been determined. Clinical correlation is essential. Serum or plasma urea nitroge n measurement (mass/volume)Ordered By: Lesly Champion on 03-31-2023 Urea nitrogen [Mass/Vol] 11 mg/dL 7-18 [facility] Squamous epithelial cells de tection in urine sediment by light microscopyOrdered By: Lesly Champion on 03-31-2023 Epithelial cells.squamous LM Ql (Urine sed) 0 SEEN /hpf 0-5 [facility] Thin prep Papanicolaou smear with manual screeningOrdered By: Lesly Champion on 03-31-2023 Thin prep Papanicolaou smear with manual screening 19 U/L 15-37 [facility] Thin prep Papanicolaou smear with manual screening 5 5-15 [facility] Urine blood detectionOrdered By: Lesly Champion on 03-31-2023 RBC Ql (U) Negative Negative [facility] RBC Ql (U) 0 SEEN /hpf 0-5 [facility] Urine clarityOrdered By: Rip Champion on 03-31-2023 Clarity (U) Clear Clear [facility] Urine color determinationOrd ered By: Lesly Champion on 03-31-2023 Color (U) Yellow Yellow [facility] Urine glucose detectionOrder ed By: Lesly Champion on 03-31-2023 Glucose Ql (U) Normal mg/dl Normal [facility] Urine leukocyte esterase det ection by dipstickOrdered By: Lesly Champion on 03-31-2023 Leukocyte esterase Test strip Ql (U) Negative Negative [facility] Urine pHOrdered By: Jermaine Champion on 03-31-2023 pH (U) 6.0 [pH] 5.0 - 8.0 [facility] Urine sediment bacteria coun t by microscopy (number/high power field)Ordered By: Lesly Champion on 03-31-2023 Bacteria LM.HPF (Urine sed) [#/Area] 0 /[HPF] None Seen [facility] Urine specific gravity measu rementOrdered By: Lesly Champion on 03-31-2023 Specific gravity (U) [Rel density] 1.015 1.002-1.03 0 [facility] Urobilinogen Auto test strip Ql (U)Ordered By: Lesly Champion on 03-31-2023 Urobilinogen Ql (U) Normal mg/dl Normal [facility] COVID CCon 02-19-2020 COVID CC Negative Normal NEGATIVE [facility] Comment on above: Order Comment: COVID 19 SENT TO [facility] 02/17/20 [place] [place]: [facility] Result Comment: Test performed by PCR This test was developed and its performance characteristics determined by [facility]'s Toni Andre and Pathology and Laboratory Medicine [place]. This test has been authorized by FDA under and Emergency Use Authorization (EUA). This test has been validated in accordance with the FDA's Guidance Document Policy for Diagnostics Testing in Laboratories Certified to Perform High Complexity Testing under CLIA prior to Emergency use Authorization for Coronavirus Disease 2019 during the Public Health Emergency issued on May. Test performed by: [facility] [address] [place] [id number] Demetrius Dunlap III, M.D. Performed By: #### L [id number] #### [facility] RE[facility] LAB [address] [place] [address] # [phone] [facility] REPORT Normal [facility] DATE OF SERVICE: HISTORY OF PRESENT ILLNESS: This is a 34-year-old male who presents on February 17, 2020 with a complaint of sore throat, headache, cough, and COVID exposure. This is being dictated in retrospect, re-created from memory, and with the chart visible in front of me. Somehow, I missed the dictation first go around. Patient states that the symptoms started February 15, 2020 with sore throat, headache, and cough, and that he was exposed. According to the patient, he was exposed in the workplace. PAST MEDICAL HISTORY: Positive for depression. He does chew tobacco. He does drink alcohol. FAMILY HISTORY: Positive for cancer. SOCIAL HISTORY: Unremarkable. PHYSICAL EXAMINATION: Weight 206.8 pounds. Blood pressure is 150/105, pulse 70, respiration 14, temperature is 97.6, pulse oximetry is 97% on room air. This is a 34-year-old male in no acute distress. He does have a slight cough. He is complaining of subjective fevers and chills, muscle aches, runny nose, sore throat, headache, fatigue, and new onset cough. HEENT: Membranes are inflamed. Pharynx is [facility] PATIENT NAME: ANGEL RIVERA [address] [facility] [address]. Hernandez MEDICAL REC #: [id number] [place] [address] [facility] REPORT [facility] PHYSICIAN slightly inflamed. Neck is supple. Heart: Regular rate and rhythm. Lungs: He has some mild expiratory wheeze. No areas of consolidation or solid pneumonias could be appreciated. He does chew tobacco but does not smoke. He does have a history of PTSD. And as far as medications, he does take medication for that and is on Lexapro daily. IMPRESSION: Respiratory illness and exposure to COVID-19. PLAN: Quarantine for 10 days. Rule out COVID-19. We did do his COVID testing here. Patient tolerated it well. He is placed off work for the 10 days. Rest and fluids. We filled out the PUI. The patient is given our standard handout on quarantine and how to self-quarantine. The patient is advised if he gets more short of breath or develops increasing symptoms or becomes more ill, he should seek help at the emergency room. The patient states he understands. He was given the number to the [facility] for any questions that he may have. Kathy Costello DO /[id number] [facility] PATIENT NAME: ANGEL RIVERA Dr. Hernandez MEDICAL REC #: [id number] [place] [address] [facility] REPORT [facility]IC[facility] SSI File#: [id number] END OF DOCUMENT / CHANGE LOG FOLLOWS Last Edited By Romeo. Signed By Kathy Costello Lisa D DO #ADAM on 03/07/2020 11:17 ET on 03/07/2020 11:17 ET Revision Number - 2 Verified/Reviewed by 03/07/[address] [facility] PATIENT NAME: ANGEL RIVERA Shayy Hernandez MEDICAL REC #: [id number] [place] [address] [facility] REPORT [facility] PHYSICIAN Normal [facility] Vital Signs Date Time Vital Sign Value Performing Clinician Faci lity 04-01-2023 07:45-0500 Body temperature 97.9 [degF] Dr. Prasanna Horne Work Phone: [facility] 04-01-2023 07:45-0500 Diastolic blood pressure 77 mm[Hg] Dr. Prasanna Horne Work Phone: [facility] 04-01-2023 07:45-0500 Heart rate 71 /min Dr. Prasanna Horne Work Phone: [facility] 04-01-2023 07:45-0500 Respiratory rate 16 /min Dr. Prasanna Horne Work Phone: [facility] 04-01-2023 07:45-0500 SaO2% (BldA) [Mass fraction] 96 % Dr. Prasanna Horne Work Phone: [facility] 04-01-2023 07:45-0500 Systolic blood pressure 140 mm[Hg] Dr. Prasanna Horne Work Phone: [facility] 03-31-2023 20:05-0500 Body height 177.[address] Prasanna Horne Work Phone: [phone] [place] [address] 03-31-2023 20:05-0500 Body mass index (BMI) [Ratio] 34.4 kg/m2 Dr. Prasanna Horne Work Phone: [facility] 03-31-2023 20:05-0500 Body weight 108.[address] Prasanna Horne Work Phone: [facility] 03-31-2023 17:46-0500 Diastolic blood pressure 78 mm[Hg] Dr. Prasanna Horne Work Phone: [facility] 03-31-2023 17:46-0500 Heart rate 74 /min Dr. Prasanna Horne Work Phone: [facility] 03-31-2023 17:46-0500 Respiratory rate 16 /min Dr. Prasanna Horne Work Phone: [facility] 03-31-2023 17:46-0500 SaO2% (BldA) [Mass fraction] 99 % Dr. Prasanna Horne Work Phone: [facility] 03-31-2023 17:46-0500 Systolic blood pressure 138 mm[Hg] Dr. Prasanna Horne Work Phone: [facility] 03-31-2023 17:13-0500 Body height 177.[address] Prasanna Horne Work Phone: [facility] 03-31-2023 17:13-0500 Body mass index (BMI) [Ratio] 33.3 kg/m2 Dr. Prasanna Horne Work Phone: [facility] 03-31-2023 17:13-0500 Body temperature 98.2 [degF] Dr. Prasanna Horne Work Phone: [facility] 03-31-2023 17:13-0500 Body weight 105.[address] Prasanna Horne Work Phone: [facility] Encounters Encounter Date Encounter Type Care Provider Facility Start: 12-22-2024 End: 12-22-[address] Zachary Horne MD Work Phone: -[facility] Start: 12-22-2024 End: 12-22-[address] Zachary Horne MD -[facility] Start: 12-22-2024 End: 12-22-2024 ambulatory Zachary Horne Facility:[facility] Start: 04-01-2023 Non-patient / Non-visit Dr. Audrey Horne Work Phone: [facility] Start: 03-31-2023 End: 04-01-2023 Evaluation and management of inpatient Dr. Prasanna Hrone Work Phone: [facility] 3 Work Phone: Start: 03-31-2023 End: 04-01-[address] Prasanna Horne Work Phone: [facility] Work Phone: Start: 03-31-2023 Admission to [facility] Dr[facility] Prasanna Horne Work Phone: [facility] Start: 03-31-[address] Prasanna Horne Work Phone: [facility] Work Phone: Start: 03-31-2023 Non-patient / Non-visit Dr. Audrey Horne Work Phone: [facility] Procedures Date Procedure Procedure Detail Performing Clinician Start: 03-31-[address] Prasanna Horne Work Phone: Start: 03-31-2023 Computed tomography of abdomen and pelvis with intravenous contrast Dr. Prasanna Horne Work Phone: History of appendectomy S/P appendectomy Dr. Zachary Horne MD Work Phone: Plan of Treatment Date Care Activity Detail Author Start: 04-01-2023 Patient discharge [facility] Start: 03-31-2023 End: 03-31-2023 Following clinical pathway protocol [facility] Start: 03-31-2023 Ambulation without limitation [facility] Start: 03-31-2023 Incentive spirometry [facility] Start: 03-31-2023 Taking patient vital signs [facility] Start: 03-31-2023 [facility] Start: 03-31-2023 Application of intermittent pneumatic compression device [facility] Start: 03-31-2023 Admission procedure [facility] Start: 03-31-2023 Laparoscopic appendectomy Laparoscopic, Appendectomy (Not Applicable) [facility] Patient referral [facility] Work Phone: Immunizations Immunization Date Immunization Notes Care Provider Fa cility 04-08-2019 tetanus toxoid, reduced diphtheria toxoid, and acellular pertussis vaccine, adsorbed Dr. Prasanna Horne Work Phone: [facility] Payers Date Payer Category Payer Self-pay [id number] Unknown [id number] Private Health Insurance [employer] [id number] da Unknown [id number] Unknown MED M[employer] TPA [id number] Unknown [id number] Unknown [id number] Social History Date Type Detail Facility Start: 03-31-[address] [facility] Unknown if ever smoked [facility] Start: 1985 Sex Assigned At Male [facility] Start: 03-31-[address] [facility] Never smoked tobacco (finding) [facility] Sex Male [facility] Medical Equipment Procedure Code Equipment Code Equipment Origin al Text Equipment Identifier Dates Appendectomy, laparoscopic RELOAD,STD 45 [id number] FDA Start: 03-31-2023 Goals Date Patient Goal Desired Activity /State Functional Status Date Assessment Result Facility 04-01-2023 Functional status Ambulates;Up ad abdiaziz [facility] Work Phone: Mental Status Date Assessment Result Facility 04-01-2023 Cognitive function Voice/Name [facility] Work Phone: Discharge summary 04-01-2023 Note Date & Type Note Facility 04-01-2023 Discharge summary Note Date/Time April 01, 2023 8:27am [facility] Medical Records Department [address] [place] [address] Instructions for Home/Discharge Instructions 04/01/23 0826 MR#: [id number] Acct: [id number] Name: ANGEL RIVERA Rep #:[id number] : 1985 37 From: David velazquez MD PCP: Dr. Prasanna Horne MD Status: ADM NISSA Discharge Instructions Procedure Appendectomy Diet Discharge Diet: Light diet - advance as tolerated Activity Discharge Activity: May Not Drive (for 2-3 days or while taking narcotic pain medications.) May shower in (days): 1 Lifting Restrictions: 20 lbs for 2 weeks Dressing / Incision Call your doctor if your incision/area has: Continuous Slow Oozing, Sudden Increased Bleeding, Increased Pain/ Swelling, Increased Redness and Foul Smelling Discharge Call your doctor if you observe: Fever of 101 or Higher Suture Line Care: Avoid Pulling/Pushing and Avoid Pinching/Bending Remove Dressing in: 2 days (Remove clear bandage in 2 days, remove Steri-Strips in 7 to 10 days) Cleanse incision/area with: Soap & Water Additional Dressing/Incision Instructions:: Keep dressing clean and dry. Changeor remove dressing in 2 days. Leave steri strips for 1 week. May protect with a gauze bandaid. Follow Up Care Please Follow Up With: Davdi Cordero MD When: Please call to schedule 2 week follow up appointment. [phone] Test Results: Test results from this visit will be discussed in further detail at your follow-up appointment, if applicable. Discharge Plan Admission Admit Date/Time: 03/31/23 18:59 Attending Provider: David Cordero Primary Care Provider: Prasanna Horne Instructions Additional Instructions / Restrictions: Alternate ibuprofen and Tylenol for pain, oxycodone for breakthrough. Okay to return to work light duty when you feel up to it. Discharge Orders/Prescriptions Prescriptions: New acetaminophen 325 mg Tablet 650 mg PO Q4H PRN PRN (Reason: Pain 1-10 Or Fever) Qty: 0 0RF oxycodone 5 mg Tablet 5 - 10 mg PO Q4H PRN PRN (Reason: Pain Score 4-10) 5 Days Qty: 20 0RF Continued epinephrine [EpiPen 2-Yosef] 0.3 mg/0.3 mL auto-injector 0.3 mg IM ONCE Qty: 2 0RF Rx Instructions: as a single dose; may repeat once escitalopram oxalate 20 mg tablet 20 mg PO DAILY Patient Comments: TAKE 1 TABLET BY MOUTH EVERY DAY trazodone 50 mg tablet 50 mg PO DAILY Patient Comments: TAKE 1 TABLET BY MOUTH AT BEDTIME Referrals / Follow Up: Prasanna Horne MD [Primary Care Provider] - Disposition Disposition (needs filled in before D/C Order can be placed): Home, Self Care 04/01/23 6309<Electronically signed by David Cordero MD>David Cordero MD CC: Dr. Prasanna Horne MD ~ Signed [facility] Work Phone: Progress note 04-01-2023 Note Date & Type Note Facility 04-01-2023 Progress note Note Date/Time April 01, 2023 8:26am [facility] Medical Records Department [address] [place] [address] Progress Note - Surgery 04/01/23824 MR#: [id number] Acct: [id number] Name: ANGEL RIVERA Rep #:[id number] : 1985 37 From: David velazquez MD PCP: Dr. Prasanna Horne MD Status: ADM NISSA Location: [place] [address] Subjective Subjective Patient is doing well with no issues Objective Data Objective Data Vital Signs: Vital Signs Temp Pulse Resp BP Pulse Ox O2 Del Method 97.9 F 71 16 140/77 H 96 Room Air 04/01/23 07:45 04/01/23 07:45 04/01/23 07:45 04/01/23 07:45 04/01/23 07:45 04/01/23 07:45 Oxygen Delivery Method Room Air Weight: 240 lb 1 oz Body Mass Index (BMI) 34.4 Intake & Output: Intake and Output for Last 24 Hours 03/30/23 03/31/23 04/01/23 23:59 23:59 23:59 Intake Total 1587 / 1787 1295 / 1295 Output Total 1050 / 1050 Balance 1587 / 1437 245 / 245 Lab / Micro Data 04/01/23 05:47 04/01/23 05:47 Labs: Laboratory Results - last 24 hr 03/31/23 15:10: WBC 9.0, RBC 5.26, Hgb 16.0, Hct 48.2, MCV 91.6, MCH 30.4, MCHC 33.2, RDW Std Deviation 44.2 H, RDW Coeff of Mally 13.2, Plt Count 237, MPV 10.8, Immature Gran % (Auto) 0.300, Neut % (Auto) 73.8 H, Lymph % (Auto) 17.5 L, [place] % (Auto) 5.9, Eos % (Auto) 1.9, Baso % (Auto) 0.6, Absolute Neuts (auto) 6.6, Absolute Lymphs (auto) 1.57, Nucleated RBC % 0, Sodium 140, Potassium 3.8, Chloride 107, Carbon Dioxide 28.0, Anion Gap 5, BUN 11, Creatinine 1.21, Estim Creat Clear Calc 84.63, Est GFR (MDRD) Af Amer 86, Est GFR (MDRD) Non-Af 71, BUN/Creatinine Ratio 9.1 L, Glucose 103, Calcium 9.1, Total Bilirubin 0.50, AST 19, ALT 54, Alkaline Phosphatase 112, Total Protein 7.5, Albumin 3.7, Globulin 3.8, Albumin/Globulin Ratio 1.0, Lipase 34 03/31/23 15:40: Urine Color Yellow, Urine Clarity Clear, Urine pH 6.0, Ur Specific Comer 1.015, Urine Protein Negative, Urine Glucose (UA) Normal, UrineKetones 5 H, Urine Occult Blood Negative, Urine Nitrite Negative, Urine Bilirubin Negative, Urine Urobilinogen Normal, Ur Leukocyte Esterase Negative, Urine RBC 0 SEEN, Urine WBC 0 SEEN, Ur Squamous Epith Cells 0 SEEN, Urine Bacteria 0 SEEN, Urine Mucus 0 SEEN 03/31/23 17:10: PT 14.4, INR 1.1, Blood Type A POSITIVE, Antibody Screen NEGATIVE 04/01/23 05:47: WBC 6.9, RBC 4.54 L, Hgb 14.1, Hct 41.7, MCV 91.9, MCH 31.1, MCHC 33.8, RDW Std Deviation 45.9 H, RDW Coeff of Mally 13.5, Plt Count 213, MPV 11.1, Immature Gran % (Auto) 0.300, Neut % (Auto) 69.3, Lymph % (Auto) 22.0, [place] % (Auto) 6.2, Eos % (Auto) 1.9, Baso % (Auto) 0.3, Absolute Neuts (auto) 4.8, Absolute Lymphs (auto) 1.53, Nucleated RBC % 0, Sodium 141, Potassium 4.3, Chloride 112 H, Carbon Dioxide 27.0, Anion Gap 2 L, BUN 10, Creatinine 1.12, Estim Creat Clear Calc 91.43, Est GFR (MDRD) Af Amer 94, Est GFR (MDRD) Non-Af 77, BUN/Creatinine Ratio 8.9 L, Glucose 94, Calcium 8.3 L Radiography Diagnostic Testing: Radiology Impression Abdomen/Pelvis CT 03/31/23 14:53 IMPRESSION: (NOT LISTED IN ORDER OF SIGNIFICANCE) Urinary bladder wall has wall thickening. This can be related to a partially contractile state. However, a cystitis is not excluded. Urinalysis should be performed in an effort to exclude cystitis. Acute appendicitis without evidence for perforation or abscess formation. Other findings as above. Electronically Signed: Stanton Corona MD at 16:45 EST , ADDENDUM: 03/31/23 1655 IMPRESSION: (NOT LISTED IN ORDER OF SIGNIFICANCE) Urinary bladder wall has wall thickening. This can be related to a partially contractile state. However, a cystitis is not excluded. Urinalysis should be performed in an effort to exclude cystitis. Acute appendicitis without evidence for perforation or abscess formation. Other findings as above. N.B. : The above Results were Read Back by Stanton Corona MD to El Bentley MD, and understanding confirmed on 03/31/2023 16:48:35 (ET). Electronically Signed: Stanton Corona MD at 16:45 EST , ADDENDUM: 03/31/23 1701 IMPRESSION: (NOT LISTED IN ORDER OF SIGNIFICANCE) Urinary bladder wall has wall thickening. This can be related to a partially contractile state. However, a cystitis is not excluded. Urinalysis should be performed in an effort to exclude cystitis. Acute appendicitis without evidence for perforation or abscess formation. Other findings as above. N.B. : The above Results were Read Back by Stanton Corona MD to El Bentley MD, and understanding confirmed on 03/31/2023 16:54:12 (ET). Electronically Signed: Stanton Corona MD at 16:45 EST , Physical Exam Const oriented x3 and no apparent distress Resp normal respiratory effort and clear to auscultation bilaterally GI soft to palpation and non-tender Assessment & Plan Assessment/Plan (1) Acute appendicitis: QUALIFIERS: Acute appendicitis type: unspecified acute appendicitis type Qualified Code(s): K35.80 - Unspecified acute appendicitis PLAN: Patient is doing well after laparoscopic appendectomy. He is tolerating adiet and he will be discharged home. 04/01/23 08 <Electronically signed by David Cordero MD> Cosigner Signature (if applicable): CC: ~ Signed [facility] Work Phone: Discharge summary 04-01-2023 Note Date & Type Note Facility 04-01-2023 Discharge summary Note Date/Time March 31, 2023 3:12pm [facility] Medical Records Department [address] [place] [id number] Emergency Department Summary 03/31/23 MR#: [id number] Acct: [id number] Name: ANGEL RIVERA Rep #:[id number] : 1985 37 From: Lesly SELF PCP: Dr. Prasanna Horne MD Status: ADM NISSA Location: [place] [id number] HPI <CLAIR Sweet - Last Filed: 03/31/23 18:04> History of Present Illness Chief Complaint: Abd Pain Narrative Narrative: Patient presenting today due to sharp right lower quadrant abdominal pain that he has had constantly since yesterday that is worsening. He reports that the pain radiates to his umbilicus. He has some nausea but denies vomiting. He denies any history of abdominal surgeries. Last bowel movement was yesterday morning and was normal. He denies fever, chills, diarrhea, urinary symptoms, and history of kidney stones. He denies a PMH of any chronic health conditions. [facility] <CLAIR Sweet - Last Filed: 03/31/23 18:04> [facility] Medical History (Updated 03/31/23 @ 17:[address] David Cordero MD) Depression Insomnia Meniscus, lateral, derangement Medical History no medical history Home Medications epinephrine 0.3 mg/0.3 mL injection, auto-injector (EpiPen 2-Yosef) 0.3 mg (0.3 mL) IM ONCE #2 ea 11/10/21 [Rx Last Taken Unknown] escitalopram oxalate 20 mg tablet 20 mg PO DAILY 03/31/23 [History Last Taken Unknown] trazodone 50 mg tablet 50 mg PO DAILY 03/31/23 [History Last Taken Unknown] Allergy/AdvReac Type Severity Reaction Status Date / Time No Known Allergies Allergy Verified 03/31/23 14:38 Social History Smoking Status: Never smoker ROS <CLAIR Sweet - Last Filed: 03/31/23 18:04> ROS ED Constitutional Constitutional ED: Denies chills or fever(s) Cardiovascular Cardiovascular: Denies chest pain Respiratory/Chest Respiratory/Chest: Denies cough or dyspnea Gastrointestinal Gastrointestinal: Reports abdominal pain and nausea; Denies diarrhea or vomiting Genitourinary Genitourinary ED: Denies dysuria, hematuria or urinary urgency Musculoskeletal Musculoskeletal: Denies arthralgias or myalgias Integumentary Denies rash Neurologic Neurologic: Denies weakness EXAM <CLAIR Sweet - Last Filed: 03/31/23 18:04> Physical Exam Const Vital Signs: 03/31/23 14:39 03/31/23 17:13 03/31/23 17:46 Temperature 96.9 F L 98.2 F Temperature Source Temporal Temporal Pulse Rate 104 H 80 74 Respiratory Rate 16 16 16 Blood Pressure 160/109 H 138/74 H 138/78 H Blood Pressure Mean 126 95 98 Blood Pressure Source Monitor Blood Pressure Position Semi-Fowlers Blood Pressure Location Right Arm Pulse Ox 95 99 99 Oxygen Delivery Method Room Air Room Air Positive well nourished, well developed and no apparent distress General Appearance ED: well developed HEENT Reports normocephalic and head/scalp atraumatic Mouth ED: Yes moist mucous membranes normal Eyes PERRL and EOMs intact bilaterally Neck full ROM and supple Chest Wall inspection of chest normal Resp normal respiratory effort and clear to auscultation bilaterally Cardio regular rate and regular rhythm GI soft to palpation, non-distended and no masses GI Narrative: BrannonBurney's point tenderness to palpation without rigidity, guarding, or peritoneal signs. Negative Fan sign, positive Rovsing sign. Back/Spine normal ROM and normal to inspection Extremity normal to inspection and full ROM Neuro oriented x3, CN's II-XII intact bilaterally, moves all extremities, no focal motor deficits and no sensory deficits noted Sensorium / Orientation: awake and alert Psych mental status grossly normal and thought process normal Skin no rashes or lesions noted and no wounds <Dr. El Bentley MD - Last Filed: 03/31/23 22:00> Physical Exam Const Vital Signs: 03/31/23 14:39 03/31/23 17:13 03/31/23 17:46 Temperature 96.9 F L 98.2 F Temperature Source Temporal Temporal Pulse Rate 104 H 80 74 Respiratory Rate 16 16 16 Blood Pressure 160/109 H 138/74 H 138/78 H Blood Pressure Mean 126 95 98 Blood Pressure Source Monitor Blood Pressure Position Semi-Fowlers Blood Pressure Location Right Arm Pulse Ox 95 99 99 Oxygen Delivery Method Room Air Room Air MDM <CLAIR Sweet - Last Filed: 03/31/23 18:04> [facility] Narrative Medical decision making narrative: Patient presenting today with right lower quadrant abdominal pain that started yesterday. He does have pain to McBurney's point. He is slightly tachycardic at 104 bpm. Labs to be obtained to rule out leukocytosis, anemia, electrolyte abnormality, CELIA, and UTI. CT of the abdomen and pelvis will be obtained to rule out appendicitis, kidney stone, bowel obstruction, diverticulitis, cholecystitis, and other etiology. He will be given IV fluids, Zofran, and morphine. CT of the abdomen does show appendicitis without perforation or abscess formation. Dr. Cordero was consulted and will be taking patient to the OR. Patient was started on Zosyn. Patient comfortable with this plan. Lab Data Attestation: I reviewed the patient's lab results. Lab results narrative: CBC, CMP, UA, lipase all WNL Labs: Laboratory Results - last 24 hr 03/31/23 03/31/23 03/31/23 15:10 15:40 17:10 WBC 9.0 RBC 5.26 Hgb 16.0 Hct 48.2 MCV 91.6 MCH 30.4 MCHC 33.2 RDW Std Deviation 44.2 H RDW Coeff of Mally 13.2 Plt Count 237 MPV 10.8 Immature Gran % (Auto) 0.300 Neut % (Auto) 73.8 H Lymph % (Auto) 17.5 L [place] % (Auto) 5.9 Eos % (Auto) 1.9 Baso % (Auto) 0.6 Absolute Neuts (auto) 6.6 Absolute Lymphs (auto) 1.57 Nucleated RBC % 0 PT 14.4 INR 1.1 Sodium 140 Potassium 3.8 Chloride 107 Carbon Dioxide 28.0 Anion Gap 5 BUN 11 Creatinine 1.21 Estim Creat Clear Calc 84.63 Est GFR (MDRD) Af Amer 86 Est GFR (MDRD) Non-Af 71 BUN/Creatinine Ratio 9.1 L Glucose 103 Calcium 9.1 Total Bilirubin 0.50 AST 19 ALT 54 Alkaline Phosphatase 112 Total Protein 7.5 Albumin 3.7 Globulin 3.8 Albumin/Globulin Ratio 1.0 Lipase 34 Urine Color Yellow Urine Clarity Clear Urine pH 6.0 Ur Specific Comer 1.015 Urine Protein Negative Urine Glucose (UA) Normal Urine Ketones 5 H Urine Occult Blood Negative Urine Nitrite Negative Urine Bilirubin Negative Urine Urobilinogen Normal Ur Leukocyte Esterase Negative Urine RBC 0 SEEN Urine WBC 0 SEEN Ur Squamous Epith Cells 0 SEEN Urine Bacteria 0 SEEN Urine Mucus 0 SEEN Blood Type A POSITIVE Antibody Screen NEGATIVE Radiography Diagnostic Testing: Clinical Impression(s) from Imaging Studies Abdomen/Pelvis CT 03/31/23 14:53 IMPRESSION: (NOT LISTED IN ORDER OF SIGNIFICANCE) Urinary bladder wall has wall thickening. This can be related to a partially contractile state. However, a cystitis is not excluded. Urinalysis should be performed in an effort to exclude cystitis. Acute appendicitis without evidence for perforation or abscess formation. Other findings as above. Electronically Signed: Stanton Corona MD at 16:45 EST , ADDENDUM: 03/31/23 8780 IMPRESSION: (NOT LISTED IN ORDER OF SIGNIFICANCE) Urinary bladder wall has wall thickening. This can be related to a partially contractile state. However, a cystitis is not excluded. Urinalysis should be performed in an effort to exclude cystitis. Acute appendicitis without evidence for perforation or abscess formation. Other findings as above. N.B. : The above Results were Read Back by Stanton Corona MD to El Bentley MD, and understanding confirmed on 03/31/2023 16:48:35 (ET). Electronically Signed: Stanton Corona MD at 16:45 EST , ADDENDUM: 03/31/23 1701 IMPRESSION: (NOT LISTED IN ORDER OF SIGNIFICANCE) Urinary bladder wall has wall thickening. This can be related to a partially contractile state. However, a cystitis is not excluded. Urinalysis should be performed in an effort to exclude cystitis. Acute appendicitis without evidence for perforation or abscess formation. Other findings as above. N.B. : The above Results were Read Back by Stanton Corona MD to El Bentley MD, and understanding confirmed on 03/31/2023 16:54:12 (ET). Electronically Signed: Stanton Corona MD at 16:45 EST , EKG Initial EKG: Comments: 75 bpm, normal sinus rhythm, no ST elevation, no signs of cardiac ischemia <Dr. El Bentley MD - Last Filed: 03/31/23 22:00> [facility] Lab Data Labs: Laboratory Results - last 24 hr 03/31/23 03/31/23 03/31/23 15:10 15:40 17:10 WBC 9.0 RBC 5.26 Hgb 16.0 Hct 48.2 MCV 91.6 MCH 30.4 MCHC 33.2 RDW Std Deviation 44.2 H RDW Coeff of Mally 13.2 Plt Count 237 MPV 10.8 Immature Gran % (Auto) 0.300 Neut % (Auto) 73.8 H Lymph % (Auto) 17.5 L [place] % (Auto) 5.9 Eos % (Auto) 1.9 Baso % (Auto) 0.6 Absolute Neuts (auto) 6.6 Absolute Lymphs (auto) 1.57 Nucleated RBC % 0 PT 14.4 INR 1.1 Sodium 140 Potassium 3.8 Chloride 107 Carbon Dioxide 28.0 Anion Gap 5 BUN 11 Creatinine 1.21 Estim Creat Clear Calc 84.63 Est GFR (MDRD) Af Amer 86 Est GFR (MDRD) Non-Af 71 BUN/Creatinine Ratio 9.1 L Glucose 103 Calcium 9.1 Total Bilirubin 0.50 AST 19 ALT 54 Alkaline Phosphatase 112 Total Protein 7.5 Albumin 3.7 Globulin 3.8 Albumin/Globulin Ratio 1.0 Lipase 34 Urine Color Yellow Urine Clarity Clear Urine pH 6.0 Ur Specific Comer 1.015 Urine Protein Negative Urine Glucose (UA) Normal Urine Ketones 5 H Urine Occult Blood Negative Urine Nitrite Negative Urine Bilirubin Negative Urine Urobilinogen Normal Ur Leukocyte Esterase Negative Urine RBC 0 SEEN Urine WBC 0 SEEN Ur Squamous Epith Cells 0 SEEN Urine Bacteria 0 SEEN Urine Mucus 0 SEEN Blood Type A POSITIVE Antibody Screen NEGATIVE Radiography Diagnostic Testing: Clinical Impression(s) from Imaging Studies Abdomen/Pelvis CT 03/31/23 14:53 IMPRESSION: (NOT LISTED IN ORDER OF SIGNIFICANCE) Urinary bladder wall has wall thickening. This can be related to a partially contractile state. However, a cystitis is not excluded. Urinalysis should be performed in an effort to exclude cystitis. Acute appendicitis without evidence for perforation or abscess formation. Other findings as above. Electronically Signed: Stanton Corona MD at 16:45 EST , ADDENDUM: 03/31/23 5683 IMPRESSION: (NOT LISTED IN ORDER OF SIGNIFICANCE) Urinary bladder wall has wall thickening. This can be related to a partially contractile state. However, a cystitis is not excluded. Urinalysis should be performed in an effort to exclude cystitis. Acute appendicitis without evidence for perforation or abscess formation. Other findings as above. N.B. : The above Results were Read Back by Stanton Corona MD to El Bentley MD, and understanding confirmed on 03/31/2023 16:48:35 (ET). Electronically Signed: Stanton Corona MD at 16:45 EST , ADDENDUM: 03/31/23 1701 IMPRESSION: (NOT LISTED IN ORDER OF SIGNIFICANCE) Urinary bladder wall has wall thickening. This can be related to a partially contractile state. However, a cystitis is not excluded. Urinalysis should be performed in an effort to exclude cystitis. Acute appendicitis without evidence for perforation or abscess formation. Other findings as above. N.B. : The above Results were Read Back by Stanton Corona MD to El Bentley MD, and understanding confirmed on 03/31/2023 16:54:12 (ET). Electronically Signed: Stanton Corona MD at 16:45 EST , Treatment and Re-Evaluation :: I have personally performed a face to face assessment of the patient and have reviewed the TAZ Note. I performed a substantive portion of the visit including all aspects of the following. My reid findings include: History: Patient states that yesterday morning he started with pain in his abdomen more around his umbilicus. It is moved to the right lower quadrant has gotten overall worse. He has had nausea but no vomiting. No change in bowel habits. No known fevers or chills. No history of abdominal surgery. No history of kidney stones and no urinary symptoms. Exam: Patient awake alert no acute distress. Lungs are clear. Heart is regularwhen I listen to them. Bowel sounds are normal. Not distended. But he does have tenderness to the right lower quadrant. He is not guarding. There is no rebound at this time. No CVA tenderness. Medical Decision Making: Patient will be given medications, IV fluids,, blood work and CT are pending. Discharge Plan Dx/Rx/DC Orders Clinical Impression: Acute appendicitis Disposition Disposition: Acute Care Hospital [facility] Discharge Date/Time: 03/31/23 18:01 What to do if you have Problems For any increased pain, shortness of breath, bleeding, nausea or vomiting, chestpain, or any unexpected problems, contact your Primary Care Provider. Call [facility] ([phone]) or report to the closest Emergency Room. Call 911 if necessary. 03/31/23 180 <Electronically signed by Lesly SELF> Cosigner Signature (if applicable): 03/31/232199 <Electronically signed by El Bentley MD> CC: Dr. Prasanna Horne MD ~ Signed [facility] Work Phone: History and physical note 03-31-2023 Note Date & Type Note Facility 03-31-2023 History and physical note Note Date/Time March 31, 2023 5:50pm [facility] Medical Records Department [address] [facility] [place] [address] H&P Exam - Surgical 03/31/23 1748 MR#: [id number] Acct: [id number] Name: ANGEL RIVERA Rep #:[id number] : 1985 37 From: David velazquez MD PCP: Dr. Prasanna Horne MD Status: REG ER Location: ED HPI - General HPI Narrative ANGEL RIVERA, is a 37 M who presents with right lower abdomen pain. The patient reports the pain started yesterday morning. It continued throughout theday and this morning it was worse than yesterday. He does have nausea but no vomiting. He denies fevers or chills. The pain does not radiate. [facility] Medical History (Updated 03/31/23 @ 17:[address] David Cordero MD) Depression Insomnia Meniscus, lateral, derangement Medical History no medical history Home Medications epinephrine 0.3 mg/0.3 mL injection, auto-injector (EpiPen 2-Yosef) 0.3 mg (0.3 mL) IM ONCE #2 ea 11/10/21 [Rx Last Taken Unknown] escitalopram oxalate 20 mg tablet 20 mg PO DAILY 03/31/23 [History Last Taken Unknown] trazodone 50 mg tablet 50 mg PO DAILY 03/31/23 [History Last Taken Unknown] Allergy/AdvReac Type Severity Reaction Status Date / Time No Known Allergies Allergy Verified 03/31/23 14:38 Social History Smoking Status: Never smoker ROS Constitutional Constitutional: Reports anorexia; Denies chills or fatigue Eyes Eyes: Denies blurry vision ENT HEENT: Denies abnormal hearing Cardiovascular Cardiovascular: Denies chest pain Respiratory/Chest Respiratory/Chest: Denies cough or dyspnea Gastrointestinal Gastrointestinal: Reports abdominal pain and nausea; Denies change in bowel habits or vomiting Genitourinary Genitourinary: Denies difficulty urinating Integumentary Integumentary: Denies jaundice or new lesions Neurologic Neurologic: Denies abnormal gait Psychiatric Psychiatric: Denies anxiety Endocrine Endocrinology: Denies heat intolerance Vital Signs Vital Signs Vital Signs: 03/31/23 14:39 03/31/23 17:13 03/31/23 17:46 Temperature 96.9 F L 98.2 F Temperature Source Temporal Temporal Pulse Rate 104 H 80 74 Respiratory Rate 16 16 16 Blood Pressure 160/109 H 138/74 H 138/78 H Blood Pressure Mean 126 95 98 Blood Pressure Source Monitor Blood Pressure Position Semi-Fowlers Blood Pressure Location Right Arm Pulse Ox 95 99 99 Oxygen Delivery Method Room Air Room Air Weight Weight: 231 lb 12.8 oz Body Mass Index (BMI) 33.3 Physical Exam Const oriented x3 and no apparent distress Resp normal respiratory effort Cardio regular rate and regular rhythm GI soft to palpation Palpation: tender RLQ Extremity normal to inspection Results Lab / Micro Data 03/31/23 15:10 03/31/23 15:10 Labs: Laboratory Results - last 24 hr 03/31/23 15:10: WBC 9.0, RBC 5.26, Hgb 16.0, Hct 48.2, MCV 91.6, MCH 30.4, MCHC 33.2, RDW Std Deviation 44.2 H, RDW Coeff of Mally 13.2, Plt Count 237, MPV 10.8, Immature Gran % (Auto) 0.300, Neut % (Auto) 73.8 H, Lymph % (Auto) 17.5 L, [place] % (Auto) 5.9, Eos % (Auto) 1.9, Baso % (Auto) 0.6, Absolute Neuts (auto) 6.6, Absolute Lymphs (auto) 1.57, Nucleated RBC % 0, Sodium 140, Potassium 3.8, Chloride 107, Carbon Dioxide 28.0, Anion Gap 5, BUN 11, Creatinine 1.21, Estim Creat Clear Calc 84.63, Est GFR (MDRD) Af Amer 86, Est GFR (MDRD) Non-Af 71, BUN/Creatinine Ratio 9.1 L, Glucose 103, Calcium 9.1, Total Bilirubin 0.50, AST 19, ALT 54, Alkaline Phosphatase 112, Total Protein 7.5, Albumin 3.7, Globulin 3.8, Albumin/Globulin Ratio 1.0, Lipase 34 03/31/23 15:40: Urine Color Yellow, Urine Clarity Clear, Urine pH 6.0, Ur Specific [place] 1.015, Urine Protein Negative, Urine Glucose (UA) Normal, UrineKetones 5 H, Urine Occult Blood Negative, Urine Nitrite Negative, Urine Bilirubin Negative, Urine Urobilinogen Normal, Ur Leukocyte Esterase Negative, Urine RBC 0 SEEN, Urine WBC 0 SEEN, Ur Squamous Epith Cells 0 SEEN, Urine Bacteria 0 SEEN, Urine Mucus 0 SEEN 03/31/23 17:10: PT 14.4, INR 1.1 Imagaing Radiology Impression Abdomen/Pelvis CT 03/31/23 14:53 IMPRESSION: (NOT LISTED IN ORDER OF SIGNIFICANCE) Urinary bladder wall has wall thickening. This can be related to a partially contractile state. However, a cystitis is not excluded. Urinalysis should be performed in an effort to exclude cystitis. Acute appendicitis without evidence for perforation or abscess formation. Other findings as above. Electronically Signed: Stanton Corona MD at 16:45 EST , ADDENDUM: 03/31/23 1655 IMPRESSION: (NOT LISTED IN ORDER OF SIGNIFICANCE) Urinary bladder wall has wall thickening. This can be related to a partially contractile state. However, a cystitis is not excluded. Urinalysis should be performed in an effort to exclude cystitis. Acute appendicitis without evidence for perforation or abscess formation. Other findings as above. N.B. : The above Results were Read Back by Stanton Corona MD to El Bentley MD, and understanding confirmed on 03/31/2023 16:48:35 (ET). Electronically Signed: Stanton Corona MD at 16:45 EST , ADDENDUM: 03/31/23 1701 IMPRESSION: (NOT LISTED IN ORDER OF SIGNIFICANCE) Urinary bladder wall has wall thickening. This can be related to a partially contractile state. However, a cystitis is not excluded. Urinalysis should be performed in an effort to exclude cystitis. Acute appendicitis without evidence for perforation or abscess formation. Other findings as above. N.B. : The above Results were Read Back by Stanton Corona MD to El Bentley MD, and understanding confirmed on 03/31/2023 16:54:12 (ET). Electronically Signed: Stanton Corona MD at 16:45 EST , Assessment & Plan Assessment/Plan (1) Acute appendicitis: QUALIFIERS: Acute appendicitis type: unspecified acute appendicitis type Qualified Code(s): K35.80 - Unspecified acute appendicitis PLAN: The patient presented with right lower quadrant pain and a CT scan revealed a thick-walled inflamed appendix. I discussed this with the patient and recommended laparoscopic appendectomy. I discussed the procedure in detail including the risks of bleeding, infection, injury other organs such as the bowel, bladder or ureter. Patient understands the risks and is willing to proceed. He will be given antibiotics in the emergency room and admitted for the night after surgery. David Cordero MD Pager: [facility] [address] [place] [address], [address] [place] [address] Office: 03/31/23 [phone] <Electronically signed by David Cordero MD> Cosigner Signature (if applicable): CC: Dr. David Cordero MD; Dr. Prasanna Horne MD~ Signed [facility] Work Phone: Procedure note 03-31-2023 Note Date & Type Note Facility 03-31-2023 Procedure note [facility] Evaluation note Note Date & Type Note Facility Evaluation note Diagnosis Onset Date Acute appendicitis acute [facility] Work Phone: Evaluation note Note Date & Type Note Facility Evaluation note No assessment information availa ble [facility] Work Phone: History and physical note Note Date & Type Note Facility History and physical note Note Date/Time March 31, 2023 5:50pm [facility] Medical Records Department [address] [place] [address] H&P Exam - Surgical 03/31/23 1748 MR#: [id number] Acct: [id number] Name: ANGEL RIVERA Rep #:[id number] : 1985 37 From: David velazquez MD PCP: Dr. Prasanna Horne MD Status: REG ER Location: ED HPI - General HPI Narrative ANGEL RIVERA, is a 37 M who presents with right lower abdomen pain. The patient reports the pain started yesterday morning. It continued throughout theday and this morning it was worse than yesterday. He does have nausea but no vomiting. He denies fevers or chills. The pain does not radiate. [facility] Medical History (Updated 03/31/23 @ 17:[address] David Cordero MD) Depression Insomnia Meniscus, lateral, derangement Medical History no medical history Home Medications epinephrine 0.3 mg/0.3 mL injection, auto-injector (EpiPen 2-Yosef) 0.3 mg (0.3 mL) IM ONCE #2 ea 11/10/21 [Rx Last Taken Unknown] escitalopram oxalate 20 mg tablet 20 mg PO DAILY 03/31/23 [History Last Taken Unknown] trazodone 50 mg tablet 50 mg PO DAILY 03/31/23 [History Last Taken Unknown] Allergy/AdvReac Type Severity Reaction Status Date / Time No Known Allergies Allergy Verified 03/31/23 14:38 Social History Smoking Status: Never smoker ROS Constitutional Constitutional: Reports anorexia; Denies chills or fatigue Eyes Eyes: Denies blurry vision ENT HEENT: Denies abnormal hearing Cardiovascular Cardiovascular: Denies chest pain Respiratory/Chest Respiratory/Chest: Denies cough or dyspnea Gastrointestinal Gastrointestinal: Reports abdominal pain and nausea; Denies change in bowel habits or vomiting Genitourinary Genitourinary: Denies difficulty urinating Integumentary Integumentary: Denies jaundice or new lesions Neurologic Neurologic: Denies abnormal gait Psychiatric Psychiatric: Denies anxiety Endocrine Endocrinology: Denies heat intolerance Vital Signs Vital Signs Vital Signs: 03/31/23 14:39 03/31/23 17:13 03/31/23 17:46 Temperature 96.9 F L 98.2 F Temperature Source Temporal Temporal Pulse Rate 104 H 80 74 Respiratory Rate 16 16 16 Blood Pressure 160/109 H 138/74 H 138/78 H Blood Pressure Mean 126 95 98 Blood Pressure Source Monitor Blood Pressure Position Semi-Fowlers Blood Pressure Location Right Arm Pulse Ox 95 99 99 Oxygen Delivery Method Room Air Room Air Weight Weight: 231 lb 12.8 oz Body Mass Index (BMI) 33.3 Physical Exam Const oriented x3 and no apparent distress Resp normal respiratory effort Cardio regular rate and regular rhythm GI soft to palpation Palpation: tender RLQ Extremity normal to inspection Results Lab / Micro Data 03/31/23 15:10 03/31/23 15:10 Labs: Laboratory Results - last 24 hr 03/31/23 15:10: WBC 9.0, RBC 5.26, Hgb 16.0, Hct 48.2, MCV 91.6, MCH 30.4, MCHC 33.2, RDW Std Deviation 44.2 H, RDW Coeff of Mally 13.2, Plt Count 237, MPV 10.8, Immature Gran % (Auto) 0.300, Neut % (Auto) 73.8 H, Lymph % (Auto) 17.5 L, [place] % (Auto) 5.9, Eos % (Auto) 1.9, Baso % (Auto) 0.6, Absolute Neuts (auto) 6.6, Absolute Lymphs (auto) 1.57, Nucleated RBC % 0, Sodium 140, Potassium 3.8, Chloride 107, Carbon Dioxide 28.0, Anion Gap 5, BUN 11, Creatinine 1.21, Estim Creat Clear Calc 84.63, Est GFR (MDRD) Af Amer 86, Est GFR (MDRD) Non-Af 71, BUN/Creatinine Ratio 9.1 L, Glucose 103, Calcium 9.1, Total Bilirubin 0.50, AST 19, ALT 54, Alkaline Phosphatase 112, Total Protein 7.5, Albumin 3.7, Globulin 3.8, Albumin/Globulin Ratio 1.0, Lipase 34 03/31/23 15:40: Urine Color Yellow, Urine Clarity Clear, Urine pH 6.0, Ur Specific [place] 1.015, Urine Protein Negative, Urine Glucose (UA) Normal, UrineKetones 5 H, Urine Occult Blood Negative, Urine Nitrite Negative, Urine Bilirubin Negative, Urine Urobilinogen Normal, Ur Leukocyte Esterase Negative, Urine RBC 0 SEEN, Urine WBC 0 SEEN, Ur Squamous Epith Cells 0 SEEN, Urine Bacteria 0 SEEN, Urine Mucus 0 SEEN 03/31/23 17:10: PT 14.4, INR 1.1 Imagaing Radiology Impression Abdomen/Pelvis CT 03/31/23 14:53 IMPRESSION: (NOT LISTED IN ORDER OF SIGNIFICANCE) Urinary bladder wall has wall thickening. This can be related to a partially contractile state. However, a cystitis is not excluded. Urinalysis should be performed in an effort to exclude cystitis. Acute appendicitis without evidence for perforation or abscess formation. Other findings as above. Electronically Signed: Stanton Corona MD at 16:45 EST , ADDENDUM: 03/31/23 1655 IMPRESSION: (NOT LISTED IN ORDER OF SIGNIFICANCE) Urinary bladder wall has wall thickening. This can be related to a partially contractile state. However, a cystitis is not excluded. Urinalysis should be performed in an effort to exclude cystitis. Acute appendicitis without evidence for perforation or abscess formation. Other findings as above. N.B. : The above Results were Read Back by Stanton Corona MD to El Bentley MD, and understanding confirmed on 03/31/2023 16:48:35 (ET). Electronically Signed: Stanton Corona MD at 16:45 EST , ADDENDUM: 03/31/23 1701 IMPRESSION: (NOT LISTED IN ORDER OF SIGNIFICANCE) Urinary bladder wall has wall thickening. This can be related to a partially contractile state. However, a cystitis is not excluded. Urinalysis should be performed in an effort to exclude cystitis. Acute appendicitis without evidence for perforation or abscess formation. Other findings as above. N.B. : The above Results were Read Back by Stanton Corona MD to El Bentley MD, and understanding confirmed on 03/31/2023 16:54:12 (ET). Electronically Signed: Stanton Corona MD at 16:45 EST , Assessment & Plan Assessment/Plan (1) Acute appendicitis: QUALIFIERS: Acute appendicitis type: unspecified acute appendicitis type Qualified Code(s): K35.80 - Unspecified acute appendicitis PLAN: The patient presented with right lower quadrant pain and a CT scan revealed a thick-walled inflamed appendix. I discussed this with the patient and recommended laparoscopic appendectomy. I discussed the procedure in detail including the risks of bleeding, infection, injury other organs such as the bowel, bladder or ureter. Patient understands the risks and is willing to proceed. He will be given antibiotics in the emergency room and admitted for the night after surgery. David Cordero MD Pager: [facility] [address] [place] [address], [address] [place] [address] Office: 03/31/23 174 <Electronically signed by David Cordero MD> Cosigner Signature (if applicable): CC: Dr. David Cordero MD; Dr. Prasanna Horne MD~ Signed [facility] Work Phone: Reason for referral (narrative) Note Date & Type Note Facility Reason for referral (narrative) No reason for referral information available [facility] Work Phone: Summary Purpose Family History No Family History Records FoundNo Family History Records Found Advance Directives No Advanced Directives Records Found Advance Directive Response Recorded Date/ Time Living Will No March 31 023 3:01pm Power of Workforce Development Assistant No March 31, 2023 3:01pm Advance Directive Response Recorded Date/ Time Living Will No March 31 023 8:05pm Power of Workforce Development Assistant No March 31, 2023 8:05pm Chief Complaint and Reason for Visit Chief Complaint RLQ ABD PAIN APENDECTOMY Reason for Visit Acute appendicitis Chief Complaint RLQ ABD PAIN ACUTE APPENDICITIS ACUTE APPENDICITIS Reason for Visit Acute appendicitis Additional Source Comments (unrecognized sect ion and content) No Status Records FoundNo Status Records Found INFORMATION SOURCE (unrecogn ized section and content) DATE CREATED AUTHOR 03/07/2020 [facility] [place] DATE CREATED AUTHOR AUTHOR'S ORGANIZ ATION 01/04/2025 [facility] Care Teams (unrecognized sec tion and content) Team Status: Active Member Role Status Dates Dr. Prasanna Horne MD Family Provider Active Dr. Prasanna Horne MD Primary Care Provider Activ e Team Status: Active Member Role Status Dates Dr. Prasanna Horne MD Primary Care Provider Activ e Dr. El Bentley MD Emergency Provider Active Dr. David Cordero MD Attending Provider Active Team Status: Active Member Role Status Dates Dr. Prasanna Horne MD Primary Care Provider Activ e Dr. El Bentley MD Emergency Provider Active Dr. David Cordero MD Admit Provid er, Attending Provider, Other Provider Active Team Status: Inactive Member Role Status Dates Dr. Prasanna Horne MD Primary Care Provider Activ e Dr. El Bentley MD Emergency Provider Active Dr. David Cordero MD Admit Provider, Attending Provider Active Team Status: Active Member Role/Relationship Status Dates Dr. Zachary Horne MD Primary care physician Act avani Team Status: Inactive Member Role/Relationship Status Dates Dr. Zachary Horne MD Primary care physician Act avani Start: December 22, 2024 End: December 22, 2024 Dr. Zachary Horne MD Attending physician Active Start: December 22, 2024 End: December 22, 2024 Goals (unrecognized section and content) Goals may be documented in a n alternate sectionGoals may be documented in an alternate section FOR RECORDS PERTAINING TO PATIENTS WHO ARE [...] BE BASED ON THE PRIMARY CLINICAL RECORDS. [facility]. provides no warranty or guarantee of the accuracy or completeness of information in this document.
[2025-02-03 11:09] LABS: Testosterone, % Free 2.58 % (1.50-4.20); Testosterone, Free 5.06 ng/dL (5.00-21.00)
== END | disposition home or self-care (01) ==
LOC: MTLAB 11:37
PROVIDERS: PCP Family Medicine; Referring Provider Family Medicine; Visit Provider Family Medicine
DX: R79.89 Other specified abnormal findings of blood chemistry (principal)
CPT/HCPCS: 36415; 82306; 83001; 83002; 84270; 84402; 84403; 84443